=== PATIENT | female | born 1980 | race Caucasian/White ===

== ENCOUNTER 2021-05-15 11:33 | Inpatient (IN) ==
--- NOTE | 2021-05-15 12:27 | Emergency Department Note ---
Extremity Problem HPI General Chief complaint: Extremity Problem,Nontraumatic Stated complaint: lower ext swelling Time Seen by Provider: 05/15/21 12:05 Source: patient Mode of arrival: ambulatory Limitations: no limitations History of Present Illness HPI Narrative: Narrative: Patient is a 40-year-old female that comes into the emergency department with complaint of bilateral leg swelling. She reports that this started yesterday. She denies any injuries. She reports the left leg is swollen more than the right leg. She has pain to the calf area on each leg. She denies any fevers or chills. She has not noticed any bruising, redness, or breaks in the skin. She denies any cough, chest pain, or shortness of breath, or difficulty breathing. She denies any abdominal pain, nausea, or vomiting. She does report that she has history of chronic kidney disease, and is currently following with history professor, Dr. Ghosh. Her last GFR was 12. She indicates that she has a follow-up appointment with him next week, and she anticipates perhaps starting dialysis in the near future. She was mainly concerned of a blood clot today. She denies any history of blood clots. She is not currently on control pill, and she denies smoking history. Related Data Previous Rx's Medication Instructions Recorded cyanocobalamin (vitamin B-12) 1,000 mcg PO QDAY #30 cap 09/19/18 1,000 mcg capsule cholecalciferol (vitamin D3) 25 1,000 unit PO QDAY #30 cap 11/19/18 mcg (1,000 unit) capsule allopurinol 100 mg tablet 200 mg PO QDAY 30 Days #60 tab 01/01/20 amlodipine 10 mg tablet 10 mg PO QDAY #30 tab 01/01/20 calcitriol 0.5 mcg capsule 1 mcg PO QDAY #30 cap 01/01/20 clopidogrel 75 mg tablet 75 mg PO QDAY #30 tab 01/01/20 ferrous sulfate 325 mg (65 mg 325 mg PO BID #60 tab 01/01/20 iron) tablet furosemide [Lasix] 40 mg PO BID #14 tab 02/27/21 Allergies Allergy/AdvReac Type Severity Reaction Status Date / Time Penicillins [PENICILLINS] Allergy Severe ANAPHYLAXIS Verified 05/15/21 15:38 Cefaclor [From CECLOR] Allergy Mild RASH Verified 05/15/21 15:38 Erythromycin Base Allergy Mild RASH Verified 05/15/21 15:38 [ERYTHROMYCIN BASE] nitrofurantoin Allergy Mild RASH Verified 05/15/21 15:38 [From MACROBID] Sulfa (Sulfonamide Allergy Mild RASH Verified 05/15/21 15:38 Antibiotics) [SULFA(SULFONAMIDE ANTIBIOTICS)] sulfamethoxazole Allergy Mild RASH Verified 05/15/21 15:38 [From SEPTRA] trimethoprim [From SEPTRA] Allergy Mild RASH Verified 05/15/21 15:38 azithromycin Allergy Unknown Hives Verified 05/15/21 11:37 cephalexin [From Keflex] Allergy Unknown Unknown Verified 05/15/21 11:37 NSAIDS (Non-Steroidal AdvReac Intermediate KIDNEY Verified 05/15/21 15:38 Anti-Inflamma DAMAGE [NSAIDS (NON-STEROIDAL ANTI-INFLAMMA] sumatriptan [From IMITREX] AdvReac Mild WORSENS LAINEZ Verified 05/15/21 15:38 Review of Systems ROS ROS Narrative: Narrative: All systems ED: reviewed and negative except as stated. PFSH Narrative Patient History Narrative: Narrative: Medical/Surgical/Family History All Active Problems (Updated 05/16/21 @ 19:45 by SOL Dickinson) Anemia in chronic kidney disease (Chronic) Chronic kidney disease, stage III (moderate) (Chronic) Dysuria (Chronic) Hyperlipidemia (Chronic) Hypotension (Chronic) Migraine (Chronic) Obesity (Chronic) Personal history of urinary calculi (Chronic) Renal osteodystrophy (Chronic) Urinary tract infection (Chronic) Vitamin D deficiency (Chronic) History of (Chronic) History of hernia surgery (Chronic) History of tubal ligation (Chronic) Chronic renal insufficiency (Chronic) Depression (Chronic) Recurrent UTI (urinary tract infection) (Chronic) Gout (Chronic) Vesicoureteral reflux with nephropathy, bilateral (Chronic) CKD stage G5/A1, GFR <15 and albumin creatinine ratio <30 mg/g (Chronic) Secondary hyperparathyroidism of renal origin (Chronic) Metabolic acidosis, NAG, failure of bicarbonate regeneration (Chronic) Essential hypertension (Chronic) Anemia in chronic kidney disease (Chronic) TIN (tubulointerstitial nephritis) (Chronic) Edema, peripheral (Acute) COVID-19 (Acute) Cough (Acute) CKD (chronic kidney disease) (Acute) ESRD (end stage renal disease) (Acute) Benign hypertension with ESRD (end-stage renal disease) (Acute) Medical History (Updated 05/16/21 @ 19:45 by SOL Dickinson) Anemia in chronic kidney disease Anemia in chronic kidney disease Has not required STEPHEN therapy as hemoglobin remains above 9 g/dL Is on iron supplement Monitor as she is now on clopidogrel Chronic kidney disease, stage III (moderate) Chronic renal insufficiency CKD stage G5/A1, GFR <15 and albumin creatinine ratio <30 mg/g Slowly progressive, but holding her own. Reflux nephropathy with chronic TIN. Depression Dysuria Essential hypertension Amlodipine Gout On low-dose allopurinol adjusted for decreased GFR Avoid nonsteroidals Hyperlipidemia Hypotension Metabolic acidosis, NAG, failure of bicarbonate regeneration Eating a diet rich in alkaline foods such as dried fruits especially raisins, with supplemental bicarbonate Migraine Obesity Personal history of urinary calculi Recurrent UTI (urinary tract infection) Renal osteodystrophy long standing reflux => metabolic bone disease. Need to control PTH to <300 Secondary hyperparathyroidism of renal origin PTH improved with calcitriol therapy Ran out of her calcitriol, does have some vitamin B TIN (tubulointerstitial nephritis) Likely result of reflux with slow progression to end-stage renal disease Urinary tract infection Vesicoureteral reflux with nephropathy, bilateral Since childbith with ureteral reimplantation Vitamin D deficiency Surgical History History of x3 History of hernia surgery History of surgery ureteral implant as an infant History of tubal ligation 2007 History of ventral hernia repair (~06/2006) Status post ureteral reimplantation (04/01/94) Family History Father Chronic obstructive pulmonary disease, Onset Age: 58 Disease of lung they are thinking father has an inherited lung condition, alpha-1 antitrypsin deficiency Mother Glaucoma, Onset Age: 52 Migraine Sinus headache Eye disease Fainting spell Breast cancer Grandmother Rheumatoid arthritis Heart disease Stroke deformity Unknown deformity Heart disease Stroke Headache Respiratory disease Other Diabetes Heart attack Hypertension Kidney stone Social History Smoking Status: Former smoker Alcohol Intake Frequency: does not drink Substance Use: does not use Exam Narrative Narrative: Narrative: General Limitations: no limitations General appearance: Present alert and in no apparent distress Head Head: Present atraumatic, normocephalic and normal inspection Eye Eye: Present normal appearance; Absent scleral icterus ENT ENT: Present mucous membranes moist Neck Neck: Present full ROM Chest Chest: Present symmetric chest wall rise Respiratory Respiratory: Present normal lung sounds bilaterally; Absent respiratory distress, rales/crackles, wheezes, stridor, accessory muscle use and prolonged expiratory phase Cardiovascular Cardiovascular: Present regular rate and normal rhythm; Absent systolic murmur and diastolic murmur Adbominal Abdominal: Present soft; Absent distention and tenderness Extremities Extremities: Present other (3+ edema in bilateral lower extremities. Capillary refill less than 2 seconds. Mild tenderness with palpation on the left and right calf. Negative Homans' sign. No palpable cord.) Back Back: Present normal inspection Neurological Neurological: Present alert and oriented X3 Psychiatric Psychiatric: Present normal affect and normal mood Skin Skin: Present warm (WNL), dry and normal color Course Vital Signs Vital signs: Vital Signs Temperature 98.0 F 05/15/21 11:33 Pulse Rate 81 05/15/21 11:33 Respiratory Rate 14 05/15/21 11:33 Blood Pressure 138/97 05/15/21 11:33 Pulse Oximetry (%) 100 05/15/21 11:33 Temperature 97.6 F 05/16/21 16:00 Pulse Rate 92 H 05/16/21 16:00 Respiratory Rate 20 05/16/21 16:00 Blood Pressure 111/70 05/16/21 16:00 Pulse Oximetry (%) 100 05/16/21 16:00 [facility] Narrative Medical decision making narrative: Narrative: 40-year-old female with history of chronic kidney disease that comes into the e mergency department today with concern of bilateral lower extremity edema. Further discussion with the patient reveals that she had stopped taking her Lasix as she apparently had ran out of the medication. Her creatinine level is elevated at 12.4, and BUN 101. Patient's potassium normal at 3.7. Sodium 140. I was able to consult with Danny today, and Dr. Ghosh feels that the patient would benefit from starting hemodialysis. Patient will likely need to be seen sooner rather than on her schedule appointment May 30, 2021. Dr. Ghosh does feel that if the patient is uncomfortable, and not tolerating the fluid overload, that hospital admission may be beneficial for patient to be seen and start hemodialysis. I was able to consult with hospitalist, Dr. Matthews today who is agreeable with hospital admission, and will plan on admitting patient and consulting with nephrology. Lab Data Lab results reviewed: Yes I reviewed the patient's lab results. Result diagrams: 05/16/21 05:31 05/16/21 05:31 Labs: Lab Results 05/15/21 05/15/21 05/15/21 Range/Units 01:25 14:14 14:14 WBC 11.3 H (4.5-11.0) K/mcL RBC 2.45 L (4.00-5.20) M/mcL Hgb 7.4 L (12.0-15.0) g/dL Hct 23.5 L (36.0-48.0) % POC Hct 23 L (36-48) % MCV 95.9 (80.0-100.0) fL MCH 30.2 (26.0-34.0) pg MCHC 31.5 (31.0-36.0) g/dL RDW 14.7 H (11.5-14.5) % Plt Count 283 (140-440) K/mcL MPV 9.5 (7.4-10.4) fL Neut % (Auto) 76.9 (38.0-78.0) % Lymph % (Auto) 15.2 (15.0-49.0) % Rhea % (Auto) 5.2 (1.0-12.0) % Eos % (Auto) 2.3 (0.0-7.0) % Baso % (Auto) 0.4 (0.0-2.0) % Lymph # (Auto) 1.71 (1.50-4.80) K/mcL Rhea # (Auto) 0.59 (0.10-0.90) K/mcL Eos # (Auto) 0.26 (0.00-0.70) K/mcL Baso # (Auto) 0.04 (0.00-0.20) K/mcL Absolute Neutrophils 8.67 H (1.80-8.00) K/mcL POC Sodium 140 (133-145) mEq/L POC Potassium 3.7 (3.3-5.1) mEql/L POC Chloride 114 H (96-108) mEq/L POC Total CO2 11 L (22-30) mmol/L POC BUN 101 H* (6-20) mg/dL POC Creatinine 12.4 H* (0.6-1.2) mg/dL POC Glucose 87 (70-105) mg/dL POC WB Ioniz Calcium 1.00 L (1.16-1.32) mmEq/L Hep Bs Antigen Negative (Negative) ED POC Tests ED POC Tests: RACHEL - SARS Antigen Negative Radiology Data Radiology results reviewed: Yes I reviewed the patient's radiology results. Radiology results narrative: Ordering Physician: Anil Andrea Date of Service: 05/15/21 Procedure(s): US venous duplex LE Accession Number(s): [id number] History: Bilateral lower leg swelling and pain FINDINGS: There is normal augmentation and compressibility of the deep veins and saphenous vein in both legs from the groin through the distal calf. Doppler shows normal waveform patterns. Small amount of subcutaneous edema is present in the lower calf bilaterally. IMPRESSION: No evidence of deep venous thrombosis in either leg Interpreted and Authenticated by: Harjeet Stanley 05/15/21 Discharge Plan Patient/Caregiver Discharge Instructions Pt seen by [facility] [facility]/PA only: Yes Clinical Impression: Edema, peripheral, CKD (chronic kidney disease), ESRD (end stage renal disease) Patient Disposition: Xfer As Inpt ([facility]) Condition: Fair Discharge Date/Time: 05/15/21 19:14 Discharge Location: [facility]
[2021-05-15 14:39] LABS: POC Blood Urea Nitrogen 101 mg/dL (6-20); POC CO2 11 mmol/L (22-30); POC Chloride 114 mEq/L (96-108); POC Creatinine 12.4 mg/dL (0.6-1.2); POC Glucose, Random 87 mg/dL (70-105); POC Hematocrit 23 % (36-48); POC Potassium 3.7 mEql/L (3.3-5.1); POC Sodium 140 mEq/L (133-145)
--- NOTE | 2021-05-15 14:40 | Ultrasound Report ---
History: Bilateral lower leg swelling and pain FINDINGS: There is normal augmentation and compressibility of the deep veins and saphenous vein in both legs from the groin through the distal calf. Doppler shows normal waveform patterns. Small amount of subcutaneous edema is present in the lower calf bilaterally. IMPRESSION: No evidence of deep venous thrombosis in either leg Interpreted and Authenticated by: Harjeet Stanley 05/15/21
[2021-05-15] MEDS ORDERED: ZOLPIDEM 5 MG TABLET PO PRN ×2 (15:35→19:10)
[2021-05-15] MEDS ORDERED: ONDANSETRON 4 MG/2 ML VIAL IV PRN ×2 (15:35→19:10)
[2021-05-15] MEDS ORDERED: ACETAMINOPHEN 325 MG TABLET PO PRN (15:35)
--- NOTE | 2021-05-15 15:44 | Internal Med History&Physical ---
HPI History of Present Illness Patient information: Note initiated : 05/15/21 at 3:41 pm Service Date, if different from initiated Date: [] Patient: Nani Wild a 40 y/o F admitted on for lower ext swelling. Chief Complaint: [bilateral leg swelling] History of present illness: Ms. Wild is a 40 year old F history of stage V chronic kidney disease with associated hypertension, gout, presenting with 2-day history of bilateral leg swellings. Patient reported that she ran out of her Lasix for a few weeks. She is complaining of 2-day history of bilateral leg swellings and associated pain. She is also complaining of general body weakness for the past few days. She is also committing of decreased appetite over the same period of time. She denies any dyspnea or orthopnea. She denies any fever, chills, or diaphoresis. Her usual serum creatinine level was about 6 and today it is 12.4. Venous Doppler ultrasound bilateral lower extremities was performed and no evidence of DVT was found. Constitutional Constitutional: Present fatigue and weakness; Absent chills, excessive sweating and fever(s) EENT Eyes: Absent blurry vision, change in vision, loss of vision and other visual disturbances Ears: Absent decreased hearing and tinnitus Nose, mouth and throat: Absent abnormal hearing, dry mouth, headache(s), nasal congestion and sore throat Cardiovascular Cardiovascular: Absent chest pain, chest pain at rest, edema, irregular heart rhythm and palpatations Respiratory Respiratory: Absent cough, dyspnea and wheezing Gastrointestinal Gastrointestinal: Absent abdominal pain, constipation, diarrhea, nausea and vomiting Musculoskeletal Musculoskeletal: Absent back pain, deformity, limited range of motion, muscle cramps, muscle weakness and numbness Additional comments: Bilateral leg swelling Integumentary Integumentary: Absent lesions, rash and wounds Neurological Neurological: Absent focal weakness, headache(s) and numbness Psychiatric Psychiatric: Absent anxiety, depression and hallucinations PFSH PFSH All Active Problems (Updated 05/15/21 @ 15:40 by Stefano Matthews MD) Benign hypertension with ESRD (end-stage renal disease) (Acute) ESRD (end stage renal disease) (Acute) Anemia in chronic kidney disease (Chronic) Chronic kidney disease, stage III (moderate) (Chronic) Dysuria (Chronic) Hyperlipidemia (Chronic) Hypotension (Chronic) Migraine (Chronic) Obesity (Chronic) Personal history of urinary calculi (Chronic) Renal osteodystrophy (Chronic) Urinary tract infection (Chronic) Vitamin D deficiency (Chronic) History of (Chronic) History of hernia surgery (Chronic) History of tubal ligation (Chronic) Chronic renal insufficiency (Chronic) Depression (Chronic) Recurrent UTI (urinary tract infection) (Chronic) Gout (Chronic) Vesicoureteral reflux with nephropathy, bilateral (Chronic) CKD stage G5/A1, GFR <15 and albumin creatinine ratio <30 mg/g (Chronic) Secondary hyperparathyroidism of renal origin (Chronic) Metabolic acidosis, NAG, failure of bicarbonate regeneration (Chronic) Essential hypertension (Chronic) Anemia in chronic kidney disease (Chronic) TIN (tubulointerstitial nephritis) (Chronic) Edema, peripheral (Acute) COVID-19 (Acute) Cough (Acute) CKD (chronic kidney disease) (Acute) Medical History (Updated 05/15/21 @ 15:40 by Stefano Matthews MD) Anemia in chronic kidney disease Anemia in chronic kidney disease Has not required STEPHEN therapy as hemoglobin remains above 9 g/dL Is on iron supplement Monitor as she is now on clopidogrel Chronic kidney disease, stage III (moderate) Chronic renal insufficiency CKD stage G5/A1, GFR <15 and albumin creatinine ratio <30 mg/g Slowly progressive, but holding her own. Reflux nephropathy with chronic TIN. Depression Dysuria Essential hypertension Amlodipine Gout On low-dose allopurinol adjusted for decreased GFR Avoid nonsteroidals Hyperlipidemia Hypotension Metabolic acidosis, NAG, failure of bicarbonate regeneration Eating a diet rich in alkaline foods such as dried fruits especially raisins, with supplemental bicarbonate Migraine Obesity Personal history of urinary calculi Recurrent UTI (urinary tract infection) Renal osteodystrophy long standing reflux => metabolic bone disease. Need to control PTH to <300 Secondary hyperparathyroidism of renal origin PTH improved with calcitriol therapy Ran out of her calcitriol, does have some vitamin B TIN (tubulointerstitial nephritis) Likely result of reflux with slow progression to end-stage renal disease Urinary tract infection Vesicoureteral reflux with nephropathy, bilateral Since childbith with ureteral reimplantation Vitamin D deficiency Surgical History History of x3 History of hernia surgery History of surgery ureteral implant as an History of tubal ligation 2007 History of ventral hernia repair (~06/2006) Status post ureteral reimplantation (04/01/94) Family History Father Chronic obstructive pulmonary disease, Onset Age: 58 Disease of lung they are thinking father has an inherited lung condition, alpha-1 antitrypsin deficiency Mother Glaucoma, Onset Age: 52 Migraine Sinus headache Eye disease Fainting spell Breast cancer Grandmother Rheumatoid arthritis Heart disease Stroke deformity Unknown deformity Heart disease Stroke Headache Respiratory disease Other Diabetes Heart attack Hypertension Kidney stone Social History (Updated 04/01/20 @ 16:39 by Jer Ghosh MD) physical activity: none alcohol intake frequency: does not drink substance use type: does not use seatbelt use: always MEDS/ALLERGIES Home Medications and Allergies Home Medications Medication Instructions Recorded Confirmed Type cyanocobalamin (vitamin B-12) 1,000 mcg PO QDAY #30 cap 09/19/18 05/15/21 Rx 1,000 mcg capsule cholecalciferol (vitamin D3) 25 1,000 unit PO QDAY #30 cap 11/19/18 05/15/21 Rx mcg (1,000 unit) capsule allopurinol 100 mg tablet 200 mg PO QDAY 30 Days #60 tab 01/01/20 05/15/21 Rx amlodipine 10 mg tablet 10 mg PO QDAY #30 tab 01/01/20 05/15/21 Rx calcitriol 0.5 mcg capsule 1 mcg PO QDAY #30 cap 01/01/20 05/15/21 Rx clopidogrel 75 mg tablet 75 mg PO QDAY #30 tab 01/01/20 05/15/21 Rx ferrous sulfate 325 mg (65 mg 325 mg PO BID #60 tab 01/01/20 05/15/21 Rx iron) tablet furosemide [Lasix] 40 mg PO BID #14 tab 02/27/21 05/15/21 Rx Allergies Allergy/AdvReac Type Severity Reaction Status Date / Time Penicillins [PENICILLINS] Allergy Severe ANAPHYLAXIS Verified 05/15/21 15:38 Cefaclor [From CECLOR] Allergy Mild RASH Verified 05/15/21 15:38 Erythromycin Base Allergy Mild RASH Verified 05/15/21 15:38 [ERYTHROMYCIN BASE] nitrofurantoin Allergy Mild RASH Verified 05/15/21 15:38 [From MACROBID] Sulfa (Sulfonamide Allergy Mild RASH Verified 05/15/21 15:38 Antibiotics) [SULFA(SULFONAMIDE ANTIBIOTICS)] sulfamethoxazole Allergy Mild RASH Verified 05/15/21 15:38 [From SEPTRA] trimethoprim [From SEPTRA] Allergy Mild RASH Verified 05/15/21 15:38 azithromycin Allergy Unknown Hives Verified 05/15/21 11:37 cephalexin [From Keflex] Allergy Unknown Unknown Verified 05/15/21 11:37 NSAIDS (Non-Steroidal AdvReac Intermediate KIDNEY Verified 05/15/21 15:38 Anti-Inflamma DAMAGE [NSAIDS (NON-STEROIDAL ANTI-INFLAMMA] sumatriptan [From IMITREX] AdvReac Mild WORSENS LAINEZ Verified 05/15/21 15:38 EXAM Constitutional Vitals: Temp Pulse Resp BP Pulse Ox 36.7 C 81 14 138/97 100 05/15/21 11:33 05/15/21 11:33 05/15/21 11:33 05/15/21 11:33 05/15/21 11:33 General appearance: cooperative and no acute distress Head Head exam: Present atraumatic and normocephalic Eye Eye exam: Present EOMI and PERRL ENT ENT exam: Present mucous membranes moist, normal exam and normal external ear exam Neck Neck exam: Present normal inspection; Absent lymphadenopathy, tenderness and thyromegaly Respiratory Respiratory exam: Absent accessory muscle use, respiratory distress and wheezes Cardiovascular Cardiovascular exam: Present normal rate and rhythm; Absent JVD GI/Abdominal GI/Abdominal exam: Present normal bowel sounds and soft; Absent organomegaly and tenderness Extremities Exam Extremities exam: Present full ROM, normal capillary refill, normal inspection and pedal edema; Absent tenderness Additional comments: AV fistula in left arm 2+ pitting edema bilateral lower extremities up to thighs Neurological Exam Neurological exam: Present alert, CN II-XII intact and oriented X3; Absent motor sensory deficit Psychiatric Psychiatric exam: Present normal affect and normal mood; Absent anxious and depressed Skin Skin exam: Present dry and intact DATA Data Completed and Pending Labs: Labs from last 24 hours 05/15/21 14:14 POC Hct 23 L POC Sodium 140 POC Potassium 3.7 POC Chloride 114 H POC Total CO2 11 L POC BUN 101 H* POC Creatinine 12.4 H* POC Glucose 87 POC WB Ioniz Calcium 1.00 L A/P Assessment and plan (1) ESRD (end stage renal disease): Status: Acute (2) Benign hypertension with ESRD (end-stage renal disease): Status: Acute (3) Gout: Status: Chronic Comment: On low-dose allopurinol adjusted for decreased GFR Avoid nonsteroidals Qualifiers: Gout site: foot Gout etiology: due to renal impairment Chronicity: chronic Laterality: left Presence of tophus: without tophus Qualified Code(s): 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 Chronic kidney disease stage V now progressing to end stage renal disease: Admit to inpatient med surg Consult conservation enforcement officer Dr. Ghosh for potential hemodialysis on 05/16/21 Increase Lasix from 40mg PO daily to BID Renal diet 2. Hypertensive associated with ESRD: Increase Lasix from 40mg PO daily to BID Resume other home regimen of oral antihypertensives 3. Gout: Hold allopurinol given acute worsening renal function for the time being GI ppx: not currently indicated DVT ppx: heparin Code status: Full Prognosis: guarded Disposition: inpatient med surg Time Spent With Patient Time: Total time spent is greater than 50% in coordination of care (as documented) at patient's floor/unit and/or counseling patient: Total time spent with greater than 50% in coordination of care (as documented) at patient's floor/unit and/or counseling patient:: 15 - 24 minutes
[2021-05-15 15:55] LABS: Basophils # (Auto) 0.04 K/mcL (0.00-0.20); Basophils % (Auto) 0.4 % (0.0-2.0); Eosinophils # (Auto) 0.26 K/mcL (0.00-0.70); Eosinophils % (Auto) 2.3 % (0.0-7.0); Hematocrit 23.5 % (36.0-48.0); Hemoglobin 7.4 g/dL (12.0-15.0); Lymphocytes # (Auto) 1.71 K/mcL (1.50-4.80); Lymphocytes % (Auto) 15.2 % (15.0-49.0); Mean Cell Volume 95.9 fL (80.0-100.0); Mean Corpuscular HGB Conc 31.5 g/dL (31.0-36.0); Mean Platelet Volume 9.5 fL (7.4-10.4); Monocytes # (Auto) 0.59 K/mcL (0.10-0.90); Monocytes % (Auto) 5.2 % (1.0-12.0); Neutrophils % (Auto) 76.9 % (38.0-78.0); Platelet Count 283 K/mcL (140-440); RBC 2.45 M/mcL (4.00-5.20); Red Cell Distribution Width 14.7 % (11.5-14.5); WBC 11.3 K/mcL (4.5-11.0)
[2021-05-15] MEDS ORDERED: FUROSEMIDE 40 MG TABLET PO SCH (16:00)
[2021-05-15] MEDS: DOCUSATE SODIUM 100 MG CAPSULE PO SCH (20:18)
[2021-05-15] MEDS: SENNOSIDES 1 TABLET PO SCH (20:19)
[2021-05-15] MEDS: 0.9 % SODIUM CHLORIDE 10 ML SYRINGE IV SCH (20:40)
[2021-05-15] MEDS: HEPARIN 5,000 UNIT/ML VIAL SQ SCH (20:47)
[2021-05-15] MEDS ORDERED: HEPARIN 5,000 UNIT/ML VIAL SQ SCH (21:00)
[2021-05-15] MEDS ORDERED: DOCUSATE SODIUM 100 MG CAPSULE PO SCH (21:00)
[2021-05-15] MEDS ORDERED: SENNOSIDES 1 TABLET PO SCH (21:00)
[2021-05-15] MEDS: FUROSEMIDE 40 MG/4 ML VIAL IV ONE ×2 (21:21→21:24)
[2021-05-15] MEDS ORDERED: FUROSEMIDE 40 MG TABLET PO ONE (21:32)
[2021-05-15] MEDS ORDERED: FUROSEMIDE 40 MG TABLET ONE (22:00)
[2021-05-15] MEDS ORDERED: 0.9 % SODIUM CHLORIDE 10 ML SYRINGE IV SCH (22:00)
[2021-05-16 03:01] LABS: Hepatitis B Surface Antibody Negative
[2021-05-16] MEDS: 0.9 % SODIUM CHLORIDE 10 ML SYRINGE IV SCH ×3 (04:27→20:38)
[2021-05-16] MEDS ORDERED: DARBEPOETIN ALFA 40 MCG/ML VIAL IV SCH (08:00)
[2021-05-16 08:07] LABS: Basophils # (Auto) 0.03 K/mcL (0.00-0.20); Basophils % (Auto) 0.3 % (0.0-2.0); Eosinophils % (Auto) 2.1 % (0.0-7.0); Hematocrit 21.9 % (36.0-48.0); Hemoglobin 6.9 g/dL (12.0-15.0); Lymphocytes # (Auto) 1.84 K/mcL (1.50-4.80); Mean Cell Volume 97.8 fL (80.0-100.0); Mean Corpuscular HGB Conc 31.5 g/dL (31.0-36.0); Mean Platelet Volume 9.5 fL (7.4-10.4); Monocytes # (Auto) 0.32 K/mcL (0.10-0.90); Monocytes % (Auto) 3.3 % (1.0-12.0); Neutrophils % (Auto) 75.3 % (38.0-78.0); Platelet Count 287 K/mcL (140-440); RBC 2.24 M/mcL (4.00-5.20); Red Cell Distribution Width 14.6 % (11.5-14.5); WBC 9.7 K/mcL (4.5-11.0)
[2021-05-16] MEDS: FUROSEMIDE 40 MG TABLET PO SCH ×2 (08:22→16:56)
[2021-05-16] MEDS: DOCUSATE SODIUM 100 MG CAPSULE PO SCH ×2 (08:22→20:39)
--- NOTE | 2021-05-16 08:28 | Nephrology Consult Note ---
HPI Data of Consult Consult date: 05/15/21 Primary Care Provider: PCP No Consult Narrative cc:: CC: Stefano Matthews MD Patient is a pleasant 40-year-old woman with longstanding progressive CKD now at end-stage renal disease. Past year she had been cared for by physicians in [place] but has moved and returned to the area and was scheduled to see me in office early next month. She presented to the emergency room concerns of lower extremity edema which was negative for DVT. Review of her lab work is consistent with end-stage renal disease with a metabolic acidosis and other electrolyte abnormalities seen in end-stage renal disease. When the ER physician called me at around 3 PM I gave him the option of admitting her at that time to institute dialysis or to wait till I see here in clinic, and he chose the former given the number of electrolyte abnormalities. When I last saw the patient in March of 2020, my note stated the following: Martina Wild is a 38-year-old woman approaching end-stage renal disease whose primary care physician is Carlo Wyatt. 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 Due to her home living condition she is not a candidate for home modalities. On 21 August the patient had a left upper arm AV fistula constructed by Dr. José Miguel Willoughby. It has all good bruit and the vessel that seems to be maturing is the cephalic vein and is easily palpable as it runs up her left arm. She also suffers from morbid obesity, recurrent UTI, dyslipidemia and other medical issues who is here for follow up. She has h/o CKD stage IV with overt proteinuria in the setting of VUR, work up negative for hepatitis panel, normal complements, negative MICAELA, negative serum and urine macrina she has atrophic right kidney at 7.6 cm, left kidney at 9.3 cm, no stenosis on renal doppler VCUG repeated was negative but the pt did not urinate during the study Her first surgery was somewhere around the age of 6 months for what I believe was posterior urethral valves and reflux she has secondary hyperparathyroidism, metabolic acidosis, anemia associated with her renal issues Laboratory Tests 03/26/20 Sodium 142 Potassium 4 Chloride 112 H Carbon Dioxide 17 L Anion Gap 13 BUN 31 H Creatinine 3.74 H GFR Calculation 14 L Glucose 118 H Uric Acid 7.7 H Calcium 8 L Phosphorus 4.5 Albumin 3.9 Vital Signs Temp Pulse Pulse Resp BP BP Pulse Ox 05/16/21 04:00 36.6 C 82 14 122/84 100 05/16/21 00:00 36.6 C 80 16 122/83 100 05/15/21 19:05 36.4 C 72 16 148/90 100 05/15/21 18:46 66 16 144/99 100 05/15/21 16:32 155/94 05/15/21 16:24 113 H 85 L 05/15/21 16:12 143/93 05/15/21 11:33 36.7 C 81 14 138/97 100 Intake and Output 05/15/21 05/16/21 05/16/21 21:59 05:59 13:59 Intake Total 480 700 Output Total 200 500 Balance 280 200 Intake: Oral 480 700 Output: Void Amount 200 500 Other: Urine Appearance Cloudy Purulent Urine Color Bright Yellow Bright Yellow Green Stool Size Small Stool Color Brown Stool Consistency Loose Weight 67.132 kg Laboratory Last Values WBC 9.7 K/mcL (4.5-11.0) 05/16/21 05:31 RBC 2.24 M/mcL (4.00-5.20) L 05/16/21 05:31 Hgb 6.9 g/dL (12.0-15.0) L* 05/16/21 05:31 Hct 21.9 % (36.0-48.0) L 05/16/21 05:31 POC Hct 23 % (36-48) L 05/15/21 14:14 MCV 97.8 fL (80.0-100.0) 05/16/21 05:31 MCH 30.8 pg (26.0-34.0) 05/16/21 05:31 MCHC 31.5 g/dL (31.0-36.0) 05/16/21 05:31 RDW 14.6 % (11.5-14.5) H 05/16/21 05:31 Plt Count 287 K/mcL (140-440) 05/16/21 05:31 MPV 9.5 fL (7.4-10.4) 05/16/21 05:31 Neut % (Auto) 75.3 % (38.0-78.0) 05/16/21 05:31 Lymph % (Auto) 19.0 % (15.0-49.0) 05/16/21 05:31 [place] % (Auto) 3.3 % (1.0-12.0) 05/16/21 05:31 Eos % (Auto) 2.1 % (0.0-7.0) 05/16/21 05:31 Baso % (Auto) 0.3 % (0.0-2.0) 05/16/21 05:31 Lymph # (Auto) 1.84 K/mcL (1.50-4.80) 05/16/21 05:31 [place] # (Auto) 0.32 K/mcL (0.10-0.90) 05/16/21 05:31 Eos # (Auto) 0.20 K/mcL (0.00-0.70) 05/16/21 05:31 Baso # (Auto) 0.03 K/mcL (0.00-0.20) 05/16/21 05:31 Absolute Neutrophils 7.27 K/mcL (1.80-8.00) 05/16/21 05:31 POC Sodium 140 mEq/L (133-145) 05/15/21 14:14 POC Potassium 3.7 mEql/L (3.3-5.1) 05/15/21 14:14 POC Chloride 114 mEq/L (96-108) H 05/15/21 14:14 POC Total CO2 11 mmol/L (22-30) L 05/15/21 14:14 POC BUN 101 mg/dL (6-20) H* 05/15/21 14:14 POC Creatinine 12.4 mg/dL (0.6-1.2) H* 05/15/21 14:14 POC Glucose 87 mg/dL (70-105) 05/15/21 14:14 POC WB Ioniz Calcium 1.00 mmEq/L (1.16-1.32) L 05/15/21 14:14 Hep Bs Antigen Negative (Negative) 05/15/21 01:25 Hep Bs Antibody Negative 05/16/21 01:35 Plan is to admit for CKD 6 with uremia, transfusion of 1-2 units of RBCs and arrange outpatient HD at [facility] HD unit. Review of Systems All systems: reviewed and no additional remarkable complaints except as stated Constitutional Constitutional: Present weakness, weight loss and other Additional comments: Decreased appetite Cardiovascular Cardiovascular: Present leg edema Psychiatric Psychiatric: Present as per HPI and change in appetite Additional comments: Poor appetite Hematologic/Lymphatic Hematologic/Lymphatic: Present other Additional comments: Worsening anemia PFSH PFSH All Active Problems (Updated 05/15/21 @ 15:40 by Stefano Matthews MD) CKD (chronic kidney disease) (Acute) ESRD (end stage renal disease) (Acute) Benign hypertension with ESRD (end-stage renal disease) (Acute) CKD stage G5/A1, GFR <15 and albumin creatinine ratio <30 mg/g (Chronic) Metabolic acidosis, NAG, failure of bicarbonate regeneration (Chronic) Anemia in chronic kidney disease (Chronic) Secondary hyperparathyroidism of renal origin (Chronic) TIN (tubulointerstitial nephritis) (Chronic) Edema, peripheral (Acute) Vesicoureteral reflux with nephropathy, bilateral (Chronic) Gout (Chronic) Anemia in chronic kidney disease (Chronic) Chronic kidney disease, stage III (moderate) (Chronic) Dysuria (Chronic) Hyperlipidemia (Chronic) Hypotension (Chronic) Migraine (Chronic) Obesity (Chronic) Personal history of urinary calculi (Chronic) Renal osteodystrophy (Chronic) Urinary tract infection (Chronic) Vitamin D deficiency (Chronic) History of (Chronic) History of hernia surgery (Chronic) History of tubal ligation (Chronic) Chronic renal insufficiency (Chronic) Depression (Chronic) Recurrent UTI (urinary tract infection) (Chronic) Essential hypertension (Chronic) COVID-19 (Acute) Cough (Acute) Medical History (Updated 05/15/21 @ 15:40 by Stefano Matthews MD) Anemia in chronic kidney disease Anemia in chronic kidney disease Has not required STEPHEN therapy as hemoglobin remains above 9 g/dL Is on iron supplement Monitor as she is now on clopidogrel Chronic kidney disease, stage III (moderate) Chronic renal insufficiency CKD stage G5/A1, GFR <15 and albumin creatinine ratio <30 mg/g Slowly progressive, but holding her own. Reflux nephropathy with chronic TIN. Depression Dysuria Essential hypertension Amlodipine Gout On low-dose allopurinol adjusted for decreased GFR Avoid nonsteroidals Hyperlipidemia Hypotension Metabolic acidosis, NAG, failure of bicarbonate regeneration Eating a diet rich in alkaline foods such as dried fruits especially raisins, with supplemental bicarbonate Migraine Obesity Personal history of urinary calculi Recurrent UTI (urinary tract infection) Renal osteodystrophy long standing reflux => metabolic bone disease. Need to control PTH to <300 Secondary hyperparathyroidism of renal origin PTH improved with calcitriol therapy Ran out of her calcitriol, does have some vitamin B TIN (tubulointerstitial nephritis) Likely result of reflux with slow progression to end-stage renal disease Urinary tract infection Vesicoureteral reflux with nephropathy, bilateral Since childbith with ureteral reimplantation Vitamin D deficiency Surgical History History of x3 History of hernia surgery History of surgery ureteral implant as an History of tubal ligation 2007 History of ventral hernia repair (~06/2006) Status post ureteral reimplantation (04/01/94) Family History Father Chronic obstructive pulmonary disease, Onset Age: 58 Disease of lung they are thinking father has an inherited lung condition, alpha-1 antitrypsin deficiency Mother Glaucoma, Onset Age: 52 Migraine Sinus headache Eye disease Fainting spell Breast cancer Grandmother Rheumatoid arthritis Heart disease Stroke deformity Unknown deformity Heart disease Stroke Headache Respiratory disease Other Diabetes Heart attack Hypertension Kidney stone Social History (Updated 04/01/20 @ 16:39 by Jer Ghosh MD) physical activity: none alcohol intake frequency: does not drink substance use type: does not use seatbelt use: always MEDS/ALLERGIES Home Medications and Allergies Home Medications Medication Instructions Recorded Confirmed Type cyanocobalamin (vitamin B-12) 1,000 mcg PO QDAY #30 cap 09/19/18 05/15/21 Rx 1,000 mcg capsule cholecalciferol (vitamin D3) 25 1,000 unit PO QDAY #30 cap 11/19/18 05/15/21 Rx mcg (1,000 unit) capsule allopurinol 100 mg tablet 200 mg PO QDAY 30 Days #60 tab 01/01/20 05/15/21 Rx amlodipine 10 mg tablet 10 mg PO QDAY #30 tab 01/01/20 05/15/21 Rx calcitriol 0.5 mcg capsule 1 mcg PO QDAY #30 cap 01/01/20 05/15/21 Rx clopidogrel 75 mg tablet 75 mg PO QDAY #30 tab 01/01/20 05/15/21 Rx ferrous sulfate 325 mg (65 mg 325 mg PO BID #60 tab 01/01/20 05/15/21 Rx iron) tablet furosemide [Lasix] 40 mg PO BID #14 tab 02/27/21 05/15/21 Rx Allergies Allergy/AdvReac Type Severity Reaction Status Date / Time Penicillins [PENICILLINS] Allergy Severe ANAPHYLAXIS Verified 05/15/21 15:38 Cefaclor [From CECLOR] Allergy Mild RASH Verified 05/15/21 15:38 Erythromycin Base Allergy Mild RASH Verified 05/15/21 15:38 [ERYTHROMYCIN BASE] nitrofurantoin Allergy Mild RASH Verified 05/15/21 15:38 [From MACROBID] Sulfa (Sulfonamide Allergy Mild RASH Verified 05/15/21 15:38 Antibiotics) [SULFA(SULFONAMIDE ANTIBIOTICS)] sulfamethoxazole Allergy Mild RASH Verified 05/15/21 15:38 [From SEPTRA] trimethoprim [From SEPTRA] Allergy Mild RASH Verified 05/15/21 15:38 azithromycin Allergy Unknown Hives Verified 05/15/21 11:37 cephalexin [From Keflex] Allergy Unknown Unknown Verified 05/15/21 11:37 NSAIDS (Non-Steroidal AdvReac Intermediate KIDNEY Verified 05/15/21 15:38 Anti-Inflamma DAMAGE [NSAIDS (NON-STEROIDAL ANTI-INFLAMMA] sumatriptan [From IMITREX] AdvReac Mild WORSENS LAINEZ Verified 05/15/21 15:38 Physical Examination Vital Signs Vital signs: Temp Pulse Resp BP Pulse Ox 36.6 C 82 14 122/84 100 05/16/21 04:00 05/16/21 04:00 05/16/21 04:00 05/16/21 04:00 05/16/21 04:00 General Appearance General appearance: appears started age and chronically ill EENT EENT: ATNC, PERRL and mucous membranes moist Neck Neck: no JVD and no carotid bruit Respiratory Respiratory: rhonchi Cardiovascular Cardiology: mid-systolic murmur, edema, regular rate, regular rhythm, normal S1 and split S1 Gastrointestinal Gastrointestinal: normoactive bowel sounds Integumentary Integumentary: warm and dry Neurologic Neurologic: no focal deficit, no asterixis, alert and oriented x3 and CN 3-12 intact Musculoskeletal Musculoskeletal: no deformities, no erythema, no cyanosis and no clubbing Psychiatric Psychiatric: mood/affect appropriate Results Lab Results Result Diagrams: 05/16/21 05:31 05/16/21 05:31 A/P Assessment and plan (1) ESRD (end stage renal disease): Status: Acute (2) Metabolic acidosis, NAG, failure of bicarbonate regeneration: Status: Chronic Comment: Eating a diet rich in alkaline foods such as dried fruits especially raisins, with supplemental bicarbonate (3) Anemia in chronic kidney disease: Status: Chronic Comment: Has not required STEPHEN therapy as hemoglobin remains above 9 g/dL Is on iron supplement Monitor as she is now on clopidogrel (4) Secondary hyperparathyroidism of renal origin: Status: Chronic Comment: PTH improved with calcitriol therapy Ran out of her calcitriol, does have some vitamin B (5) Vesicoureteral reflux with nephropathy, bilateral: Status: Chronic Comment: Since childbith with ureteral reimplantation (6) TIN (tubulointerstitial nephritis): Status: Chronic Comment: Likely result of reflux with slow progression to end-stage renal disease (7) Edema, peripheral: Status: Acute Narrative A/P Narrative: 1. Reflux nephritis despite attempts at surgical correction 2. Slow progression to ESRD over the years 3. Appropriate for institution of renal replacement therapy at this time 4. Anemia to be treated with 1 to 2 units of packed red blood cells 5. Initiation of STEPHEN therapy 6. Start phosphate binders and vitamin D analogs 7. Routine dialysis as an outpatient. 8. Initially plan on inpatient hemodialysis for 3 sessions increasing time to prevent disequilibrium. 9. Anticipate TTS as an outpatient and plan on her first outpatient treatment on May 21 10. Primary care physician Time Spent With Patient Time: Total time spent is greater than 50% in coordination of care (as documented) at patient's floor/unit and/or counseling patient: Total time spent with greater than 50% in coordination of care (as documented) at patient's floor/unit and/or counseling patient:: Greater than 35 minutes
[2021-05-16] MEDS ORDERED: 0.9 % SODIUM CHLORIDE 250 ML IV SCH (08:30)
[2021-05-16 08:34] LABS: ALT/SGPT 6 U/L (<40); AST/SGOT 8 U/L (<32); Albumin 2.8 gm/dL (3.2-5.2); Albumin/Globulin Ratio 0.8 (1.0-2.3); Alkaline Phosphatase 103 U/L (39-117); Bilirubin,Total 0.2 mg/dL (0.1-1.0); Blood Urea Nitrogen 82 mg/dL (6-20); Calcium 7.6 mg/dL (8.6-10.4); Carbon Dioxide 9 mmol/L (22-30); Chloride 104 mmol/L (96-108); Globulin 3.6 gm/dL (2.2-3.7); Glomerular Filtration Rate 5; Glucose 66 mg/dL (70-105)
[2021-05-16 08:34] LABS: Iron 60 ug/dL (37-145); TIBC Calculation 112 ug/dl (228-428); Transferrin % Saturation 54 % (15-50)
[2021-05-16 08:38] LABS: Ferritin 278.6 ng/mL (13.0-150.0)
[2021-05-16] MEDS: HEPARIN 5,000 UNIT/ML VIAL SQ SCH ×2 (09:00→20:38)
[2021-05-16] MEDS: CYANOCOBALAMIN (VITAMIN B-12) 500 MCG TABLET PO SCH (09:00)
[2021-05-16] MEDS: VITAMIN D3 1,000 UNIT TABLET PO SCH (09:00)
[2021-05-16] MEDS ORDERED: amLODIPine 10 MG TABLET PO SCH (09:00)
[2021-05-16] MEDS: CALCITRIOL 0.25 MCG CAPSULE PO SCH (09:00)
[2021-05-16] MEDS: CLOPIDOGREL 75 MG TABLET PO SCH (09:00)
[2021-05-16] MEDS: FERROUS SULFATE 325 MG TABLET PO SCH ×2 (09:16→16:56)
--- NOTE | 2021-05-16 12:29 | Internal Med Progress Note ---
SUBJECTIVE Subjective Patient information: Note initiated : 05/16/21 at 12:26 pm Service Date, if different from initiated Date: [] Patient: Nani Wild 40 y/o F admitted on 05/15/21 for lower ext swelling. Chief Complaint: [ESRD requiring hemodialysis] 05/16/21: Hemoglobin 6.9 this morning. Received hemodialysis earlier this morning. Currently c/o mild lightheadedness and general body weakness. Denies chest pain or palpitation. Denies nausea or vomiting. Denies shortness of breath. Constitutional Vitals: Vital Signs Temp Pulse Resp BP Pulse Ox 36.4 C 68 16 96/54 91 05/16/21 11:55 05/16/21 11:55 05/16/21 08:28 05/16/21 11:55 05/16/21 08:28 Period Temp Pulse Resp BP Sys/Kinney Pulse Ox Last 24 Hr 36.1 C-36.8 C 60-113 14-20 83-155/40-99 85-100 Intake and Output 05/15/21 05/16/21 05/16/21 21:59 05:59 13:59 Intake Total 480 700 Output Total 200 500 0 Balance 280 200 0 Weight 67.132 kg Intake & Output: Intake & Output 05/15/21 05/16/21 05/16/21 21:59 05:59 13:59 Intake Total 480 700 Output Total 200 500 0 Balance 280 200 0 Weight 67.132 kg Intake: Oral 480 700 Output: Void Amount 200 500 Hemodialysis UF 0 Other: Urine Appearance Cloudy Purulent Urine Color Bright Yellow Bright Yellow Green Stool Size Small Stool Color Brown Stool Consistency Loose General appearance: cooperative and no acute distress Head Head exam: Present atraumatic and normocephalic Eye Eye exam: Present EOMI and PERRL ENT ENT exam: Present mucous membranes moist, normal exam and normal external ear exam Neck Neck exam: Present normal inspection; Absent lymphadenopathy, tenderness and thyromegaly Respiratory Respiratory exam: Absent accessory muscle use, respiratory distress and wheezes Cardiovascular Cardiovascular exam: Present normal rate and rhythm; Absent JVD Additional comments: Left arm AV fistula with palpable thrill GI/Abdominal GI/Abdominal exam: Present normal bowel sounds and soft; Absent organomegaly and tenderness Extremities Exam Extremities exam: Present full ROM, normal capillary refill and normal inspection; Absent tenderness Additional comments: Left arm AV fistula with palpable thrill Neurological Exam Neurological exam: Present alert, CN II-XII intact and oriented X3; Absent motor sensory deficit Psychiatric Psychiatric exam: Present normal affect and normal mood; Absent anxious and depressed Skin Skin exam: Present dry and intact OBJ DATA Labs CBC & Chem 7: 05/16/21 05:31 05/16/21 05:31 Labs: Abnormal Lab Results 05/16/21 05/16/21 05/16/21 05:31 05:31 05:30 WBC RBC 2.24 L Hgb 6.9 L* Hct 21.9 L POC Hct RDW 14.6 H Absolute Neutrophils POC Chloride Carbon Dioxide 9 L* POC Total CO2 Anion Gap 22.0 H POC BUN BUN 82 H Creatinine 9.5 H* POC Creatinine Glucose 66 L Calcium 7.6 L POC WB Ioniz Calcium TIBC 112 L Unsat Iron Binding 52 L Transferrin % Sat 54 H Ferritin 278.6 H Albumin 2.8 L Albumin/Globulin Ratio 0.8 L 05/15/21 05/15/21 14:14 14:14 WBC 11.3 H RBC 2.45 L Hgb 7.4 L Hct 23.5 L POC Hct 23 L RDW 14.7 H Absolute Neutrophils 8.67 H POC Chloride 114 H Carbon Dioxide POC Total CO2 11 L Anion Gap POC BUN 101 H* BUN Creatinine POC Creatinine 12.4 H* Glucose Calcium POC WB Ioniz Calcium 1.00 L TIBC Unsat Iron Binding Transferrin % Sat Ferritin Albumin Albumin/Globulin Ratio Meds: Medications Acetaminophen (Acetaminophen 325 Mg Tablet) 650 mg PO Q6HP PRN; Protocol PRN Reason: Per Pain Protocol/Fever > 101 Amlodipine Besylate (Amlodipine 10 Mg Tablet) 10 mg PO QDAY [facility] Last Admin: 05/16/21 09:41 Dose: Not Given Documented by: Calcitriol (Calcitriol 0.25 Mcg Capsule) 1 mcg PO DAILY [facility] Last Admin: 05/16/21 09:00 Dose: 1 mcg Documented by: Clopidogrel Bisulfate (Clopidogrel 75 Mg Tablet) 75 mg PO QDAY [facility] Last Admin: 05/16/21 09:00 Dose: 75 mg Documented by: Cyanocobalamin (Cyanocobalamin (Vitamin B-12) 500 Mcg Tablet) 1,000 mcg PO DAILY [facility] Last Admin: 05/16/21 09:00 Dose: 1,000 mcg Documented by: Darbepoetin Ochoa (Darbepoetin Ochoa 40 Mcg/Ml Vial) 40 mcg IV WEEKLY [facility] Last Admin: 05/16/21 11:10 Dose: 40 mcg Documented by: Docusate Sodium (Docusate Sodium 100 Mg Capsule) 100 mg PO BID [facility] Last Admin: 05/16/21 08:22 Dose: Not Given Documented by: Ferrous Sulfate (Ferrous Sulfate 325 Mg Tablet) 325 mg PO BIDCC [facility] Last Admin: 05/16/21 09:16 Dose: 325 mg Documented by: Furosemide (Furosemide 40 Mg Tablet) 40 mg PO BIDD [facility] Last Admin: 05/16/21 08:22 Dose: Not Given Documented by: Heparin Sodium (Porcine) (Heparin 5,000 Unit/Ml Vial) 5,000 unit SQ Q12 [facility] Last Admin: 05/16/21 09:00 Dose: 5,000 unit Documented by: Sodium Chloride (Sodium Chloride 0.9%) 250 mls @ 20 mls/hr IV .[id number] [facility] Stop: 05/16/21 20:59 Last Admin: 05/16/21 11:23 Dose: Not Given Documented by: Ondansetron HCl (Ondansetron 4 Mg/2 Ml Vial) 4 mg IV Q6HP PRN PRN Reason: Nausea And Vomiting Senna (Sennosides 1 Tablet) 2 tab PO HS [facility] Last Admin: 05/15/21 20:19 Dose: Not Given Documented by: Sodium Chloride (0.9 % Sodium Chloride 10 Ml Syringe) 10 ml IV Q8 [facility] Last Admin: 05/16/21 04:27 Dose: 10 ml Documented by: Vitamin D (Vitamin D3 1,000 Unit Tablet) 1,000 unit PO DAILY [facility] Last Admin: 05/16/21 09:00 Dose: 1,000 unit Documented by: Zolpidem Tartrate (Zolpidem 5 Mg Tablet) 5 mg PO HSP PRN PRN Reason: Insomnia A/P Assessment and plan (1) ESRD (end stage renal disease): Status: Acute (2) Benign hypertension with ESRD (end-stage renal disease): Status: Acute (3) Gout: Status: Chronic Comment: On low-dose allopurinol adjusted for decreased GFR Avoid nonsteroidals Qualifiers: Gout site: foot Gout etiology: due to renal impairment Chronicity: chronic Laterality: left Presence of tophus: without tophus Qualified Code(s): 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 Chronic kidney disease stage V now progressing to end stage renal disease: Stays in inpatient med surg Consult delivery driver assistant Dr. Ghosh, hemodialysis on 05/16/21 Increase Lasix from 40mg PO daily to BID Renal diet 2. Hypertensive associated with ESRD: [id number] PO BID Resume other home regimen of oral antihypertensives 3. Gout: Hold allopurinol given acute worsening renal function for the time being 4. Anemia associated with ESRD: 2 unit pRBC transfusion given alongside hemodialysis cbc w/ auto diff daily to trend H/H and repeat pRBC transfusion as needed GI ppx: not currently indicated DVT ppx: heparin Code status: Full Prognosis: guarded Disposition: inpatient med surg Time Spent With Patient Time: Total time spent is greater than 50% in coordination of care (as documented) at patient's floor/unit and/or counseling patient: Total time spent with greater than 50% in coordination of care (as documented) at patient's floor/unit and/or counseling patient:: 15 - 24 minutes
[2021-05-16] MEDS: SENNOSIDES 1 TABLET PO SCH (20:40)
[2021-05-17] MEDS: ACETAMINOPHEN 325 MG TABLET PO PRN ×3 (03:42→21:24)
[2021-05-17] MEDS: 0.9 % SODIUM CHLORIDE 10 ML SYRINGE IV SCH ×3 (06:31→21:25)
[2021-05-17 06:56] LABS: Basophils # (Auto) 0.03 K/mcL (0.00-0.20); Basophils % (Auto) 0.4 % (0.0-2.0); Eosinophils # (Auto) 0.11 K/mcL (0.00-0.70); Eosinophils % (Auto) 1.4 % (0.0-7.0); Hematocrit 26.3 % (36.0-48.0); Hemoglobin 8.6 g/dL (12.0-15.0); Lymphocytes # (Auto) 1.81 K/mcL (1.50-4.80); Lymphocytes % (Auto) 23.5 % (15.0-49.0); Mean Cell Volume 92.9 fL (80.0-100.0); Mean Corpuscular HGB Conc 32.7 g/dL (31.0-36.0); Mean Platelet Volume 9.3 fL (7.4-10.4); Monocytes # (Auto) 0.48 K/mcL (0.10-0.90); Monocytes % (Auto) 6.2 % (1.0-12.0); Neutrophils % (Auto) 68.5 % (38.0-78.0); Platelet Count 278 K/mcL (140-440); RBC 2.83 M/mcL (4.00-5.20); Red Cell Distribution Width 14.3 % (11.5-14.5); WBC 7.7 K/mcL (4.5-11.0)
[2021-05-17 07:33] LABS: ALT/SGPT < 5 U/L (<40); AST/SGOT 8 U/L (<32); Albumin 2.8 gm/dL (3.2-5.2); Albumin/Globulin Ratio 0.8 (1.0-2.3); Alkaline Phosphatase 91 U/L (39-117); Bilirubin,Total 0.3 mg/dL (0.1-1.0); Blood Urea Nitrogen 48 mg/dL (6-20); Calcium 7.5 mg/dL (8.6-10.4); Carbon Dioxide 20 mmol/L (22-30); Chloride 102 mmol/L (96-108); Globulin 3.3 gm/dL (2.2-3.7); Glomerular Filtration Rate 9; Glucose 84 mg/dL (70-105)
[2021-05-17] MEDS: CYANOCOBALAMIN (VITAMIN B-12) 500 MCG TABLET PO SCH (07:49)
[2021-05-17] MEDS: VITAMIN D3 1,000 UNIT TABLET PO SCH (07:49)
[2021-05-17] MEDS: CLOPIDOGREL 75 MG TABLET PO SCH (07:49)
[2021-05-17] MEDS: CALCITRIOL 0.25 MCG CAPSULE PO SCH (07:49)
[2021-05-17] MEDS: FERROUS SULFATE 325 MG TABLET PO SCH ×2 (07:49→16:49)
[2021-05-17] MEDS: HEPARIN 5,000 UNIT/ML VIAL SQ SCH ×2 (07:50→21:23)
--- NOTE | 2021-05-17 08:15 | Nephrology Progress Note ---
SUBJECTIVE Subjective Patient information: Note initiated : 05/17/21 at 8:13 am Service Date, if different from initiated Date: [] Patient: Nani Wild 40 y/o F admitted on 05/15/21 for lower ext swelling. Chief Complaint: swelling in leg and ESRD for start of HD[] S/E/DR Today will be her second dialysis treatment for 3 hours no second unit of packed red blood cells is to be administered. Etiology of ESRD is chronic reflux Her hypertensive medications have been discontinued to permit dialysis with fluid removal She will need outpatient evaluation and treatment of outflow stenosis based on high venous pressures. Laboratory Tests 05/17/21 05:53 WBC 7.7 Hgb 8.6 L Hct 26.3 L MCV 92.9 Plt Count 278 Laboratory Tests 05/17/21 05/17/21 05:53 05:53 Sodium 137 Potassium 3.0 L Chloride 102 Carbon Dioxide 20 L BUN 48 H Creatinine 5.4 H* GFR Calculation 9 Glucose 84 Calcium 7.5 L Phosphorus 5.0 H Albumin 2.8 L Plan HD tomorrow and discharge for follow up on TTS HD starting 04/2921 as outpatient at [facility] HD unit TTS second shift Constitutional Vitals: Vital Signs Temp Pulse Resp BP Pulse Ox 37.2 C 74 18 121/82 96 05/17/21 07:47 05/17/21 07:47 05/17/21 07:47 05/17/21 07:47 05/17/21 07:47 Period Temp Pulse Resp BP Sys/Kinney Pulse Ox Last 24 Hr 36.1 C-37.2 C 60-92 12-20 83-122/40-82 91-100 Intake and Output 05/16/21 05/17/21 05/17/21 21:59 05:59 13:59 Intake Total 700 300 Output Total 1200 900 Balance -500 -600 Weight 68.492 kg Intake & Output: Intake & Output 05/16/21 05/17/21 05/17/21 21:59 05:59 13:59 Intake Total 700 300 Output Total 1200 900 Balance -500 -600 Weight 68.492 kg Intake: Oral 700 300 Output: Void Amount 1200 900 Other: Meal Breakfast Percent of Meal Consumed 50% Feeding Ability Independent Urine Appearance Clear Cloudy Urine Color Bright Yellow Dark Yellow Urine Odor Strong Stool Size Moderate Stool Consistency Soft # Voids 1 # Bowel Movements 1 General appearance: cooperative, no acute distress and obese Exam: HEENT: Normocephalic atraumatic Pupils equal round react to light Extraocular muscles are intact Neck: No elevated JVD, , or bruits Chest: Clear to percussion auscultation, breath sounds Cor: Normal S1 and S2 without S3 or S4 no pericardial friction rub ABd: Soft and nondistended, active bowel sounds Ext: Without cyanosis clubbing there is 1+ edema Neuro: Alert and oriented x3, nonfocal, cranial nerves II through XII intact, Psych: Pleasant and appropriate Skin: No rashes or petechiae Left arm with AV fistula with good bruit and thrill but numerous accessory veins and high venous pressure on the machine suggest central outflow stenosis which will be addressed as an outpatient A/P Assessment and plan (1) ESRD (end stage renal disease): Status: Chronic Comment: Assessment and plan (1) ESRD (end stage renal disease): (2) Metabolic acidosis, NAG, failure of bicarbonate regeneration: (3) Anemia in chronic kidney disease: (4) Secondary hyperparathyroidism of renal origin: (5) Vesicoureteral reflux with nephropathy, bilateral: (6) TIN (tubulointerstitial nephritis): (7) Edema, peripheral: Narrative A/P Narrative: 1. Reflux nephritis despite attempts at surgical correction 2. Slow progression to ESRD over the years 3. Appropriate for institution of renal replacement therapy at this time 4. Anemia to be treated with 1 to 2 units of packed red blood cells 5. Initiation of STEPHEN therapy 6. Start phosphate binders and vitamin D analogs 7. Routine dialysis as an outpatient. 8. Initially plan on inpatient hemodialysis for 3 sessions increasing time to prevent disequilibrium. 9. Anticipate TTS as an outpatient and plan on her first outpatient treatment on May 21 10. Primary care physician Time Spent With Patient Time: Total time spent is greater than 50% in coordination of care (as documented) at patient's floor/unit and/or counseling patient: Total time spent with greater than 50% in coordination of care (as documented) at patient's floor/unit and/or counseling patient:: Greater than 35 minutes Time Spent With Patient Time: Total time spent is greater than 50% in coordination of care (as documented) at patient's floor/unit and/or counseling patient:
[2021-05-17] MEDS ORDERED: POTASSIUM CHLORIDE 20 MEQ TABLET PO ONE (08:19)
[2021-05-17] MEDS: DOCUSATE SODIUM 100 MG CAPSULE PO SCH ×2 (09:26→21:21)
--- NOTE | 2021-05-17 10:20 | Internal Med Progress Note ---
SUBJECTIVE Subjective Patient information: Note initiated : 05/17/21 at 10:15 am Service Date, if different from initiated Date: [] Patient: Nani Wild 40 y/o F admitted on 05/15/21 for lower ext swelling. Chief Complaint: [ESRD requiring HD] 05/16/21: Hemoglobin 6.9 this morning. Received hemodialysis earlier this morning. Currently c/o mild lightheadedness and general body weakness. Denies chest pain or palpitation. Denies nausea or vomiting. Denies shortness of breath. 05/17/21: s/p hemodialysis yesterday; currently receiving second round today. c/o bilateral leg swelling and pain 04/30. Denies general body weakness. Denies SOB. Denies nausea or vomiting. Constitutional Vitals: Vital Signs Temp Pulse Resp BP Pulse Ox 36.3 C 62 18 116/74 96 05/17/21 09:05 05/17/21 10:08 05/17/21 07:47 05/17/21 10:08 05/17/21 07:47 Period Temp Pulse Resp BP Sys/Kinney Pulse Ox Last 24 Hr 36.3 C-37.2 C 60-92 12-20 82-122/41-82 96-100 Intake and Output 05/16/21 05/17/21 05/17/21 21:59 05:59 13:59 Intake Total 700 300 Output Total 1200 900 Balance -500 -600 Weight 68.492 kg Intake & Output: Intake & Output 05/16/21 05/17/21 05/17/21 21:59 05:59 13:59 Intake Total 700 300 Output Total 1200 900 Balance -500 -600 Weight 68.492 kg Intake: Oral 700 300 Output: Void Amount 1200 900 Other: Meal Breakfast Percent of Meal Consumed 50% Feeding Ability Independent Urine Appearance Clear Cloudy Urine Color Bright Yellow Dark Yellow Urine Odor Strong Stool Size Moderate Stool Consistency Soft # Voids 1 # Bowel Movements 1 General appearance: cooperative and no acute distress Head Head exam: Present atraumatic and normocephalic Eye Eye exam: Present EOMI and PERRL ENT ENT exam: Present mucous membranes moist, normal exam and normal external ear exam Neck Neck exam: Present normal inspection; Absent lymphadenopathy, tenderness and thyromegaly Respiratory Respiratory exam: Absent accessory muscle use, respiratory distress and wheezes Cardiovascular Cardiovascular exam: Present normal rate and rhythm; Absent JVD Additional comments: Left arm AV fistula with palpable thrill GI/Abdominal GI/Abdominal exam: Present normal bowel sounds and soft; Absent organomegaly and tenderness Extremities Exam Extremities exam: Present full ROM, normal capillary refill, normal inspection and pedal edema; Absent tenderness Additional comments: Left arm AV fistula with palpable thrill Neurological Exam Neurological exam: Present alert, CN II-XII intact and oriented X3; Absent motor sensory deficit Psychiatric Psychiatric exam: Present normal affect and normal mood; Absent anxious and depressed Skin Skin exam: Present dry and intact OBJ DATA Labs CBC & Chem 7: 05/17/21 05:53 05/17/21 05:53 Labs: Abnormal Lab Results 05/17/21 05/17/21 05/17/21 05:53 05:53 05:53 WBC RBC 2.83 L Hgb 8.6 L Hct 26.3 L POC Hct RDW Absolute Neutrophils Potassium 3.0 L POC Chloride Carbon Dioxide 20 L POC Total CO2 Anion Gap POC BUN BUN 48 H Creatinine 5.4 H* POC Creatinine Glucose Calcium 7.5 L POC WB Ioniz Calcium Phosphorus 5.0 H TIBC Unsat Iron Binding Transferrin % Sat Ferritin Albumin 2.8 L Albumin/Globulin Ratio 0.8 L 05/16/21 05/16/21 05/16/21 05:31 05:31 05:30 WBC RBC 2.24 L Hgb 6.9 L* Hct 21.9 L POC Hct RDW 14.6 H Absolute Neutrophils Potassium POC Chloride Carbon Dioxide 9 L* POC Total CO2 Anion Gap 22.0 H POC BUN BUN 82 H Creatinine 9.5 H* POC Creatinine Glucose 66 L Calcium 7.6 L POC WB Ioniz Calcium Phosphorus TIBC 112 L Unsat Iron Binding 52 L Transferrin % Sat 54 H Ferritin 278.6 H Albumin 2.8 L Albumin/Globulin Ratio 0.8 L 05/15/21 05/15/21 14:14 14:14 WBC 11.3 H RBC 2.45 L Hgb 7.4 L Hct 23.5 L POC Hct 23 L RDW 14.7 H Absolute Neutrophils 8.67 H Potassium POC Chloride 114 H Carbon Dioxide POC Total CO2 11 L Anion Gap POC BUN 101 H* BUN Creatinine POC Creatinine 12.4 H* Glucose Calcium POC WB Ioniz Calcium 1.00 L Phosphorus TIBC Unsat Iron Binding Transferrin % Sat Ferritin Albumin Albumin/Globulin Ratio Meds: Medications Acetaminophen (Acetaminophen 325 Mg Tablet) 650 mg PO Q6HP PRN; Protocol PRN Reason: Per Pain Protocol/Fever > 101 Last Admin: 05/17/21 03:42 Dose: 650 mg Documented by: Calcitriol (Calcitriol 0.25 Mcg Capsule) 1 mcg PO DAILY [facility] Last Admin: 05/17/21 07:49 Dose: 1 mcg Documented by: Clopidogrel Bisulfate (Clopidogrel 75 Mg Tablet) 75 mg PO QDAY [facility] Last Admin: 05/17/21 07:49 Dose: 75 mg Documented by: Cyanocobalamin (Cyanocobalamin (Vitamin B-12) 500 Mcg Tablet) 1,000 mcg PO DAILY [facility] Last Admin: 05/17/21 07:49 Dose: 1,000 mcg Documented by: Darbepoetin Ochoa (Darbepoetin Ochoa 40 Mcg/Ml Vial) 40 mcg IV WEEKLY [facility] Last Admin: 05/16/21 11:10 Dose: 40 mcg Documented by: Docusate Sodium (Docusate Sodium 100 Mg Capsule) 100 mg PO BID [facility] Last Admin: 05/17/21 09:26 Dose: Not Given Documented by: Ferrous Sulfate (Ferrous Sulfate 325 Mg Tablet) 325 mg PO BIDCC [facility] Last Admin: 05/17/21 07:49 Dose: 325 mg Documented by: Heparin Sodium (Porcine) (Heparin 5,000 Unit/Ml Vial) 5,000 unit SQ Q12 [facility] Last Admin: 05/17/21 07:50 Dose: 5,000 unit Documented by: Ondansetron HCl (Ondansetron 4 Mg/2 Ml Vial) 4 mg IV Q6HP PRN PRN Reason: Nausea And Vomiting Senna (Sennosides 1 Tablet) 2 tab PO HS [facility] Last Admin: 05/16/21 20:40 Dose: Not Given Documented by: Sodium Chloride (0.9 % Sodium Chloride 10 Ml Syringe) 10 ml IV Q8 [facility] Last Admin: 05/17/21 06:31 Dose: 10 ml Documented by: Vitamin D (Vitamin D3 1,000 Unit Tablet) 1,000 unit PO DAILY [facility] Last Admin: 05/17/21 07:49 Dose: 1,000 unit Documented by: Zolpidem Tartrate (Zolpidem 5 Mg Tablet) 5 mg PO HSP PRN PRN Reason: Insomnia A/P Assessment and plan (1) ESRD (end stage renal disease): Status: Acute (2) Benign hypertension with ESRD (end-stage renal disease): Status: Acute (3) Gout: Status: Chronic Comment: On low-dose allopurinol adjusted for decreased GFR Avoid nonsteroidals Qualifiers: Gout site: foot Gout etiology: due to renal impairment Chronicity: chronic Laterality: left Presence of tophus: without tophus Qualified Code(s): M1A.3720 - Chronic gout due to renal impairment, left ankle and foot, without tophus (tophi) (4) Hyperkalemia: Status: Acute Narrative A/P Narrative: Assessment and Plans: 1. Chronic kidney disease stage V now progressing to end stage renal disease: Stays in inpatient med surg Consult truck greaser Dr. Ghosh, hemodialysis 3 times in a roll 05/16 27 and , then 05/21 Continue Lasix 40mg PO BID Renal diet 2. Hypertensive associated with ESRD: [id number] PO BID Resume other home regimen of oral antihypertensives 3. Gout: Hold allopurinol given acute worsening renal function for the time being 4. Anemia associated with ESRD: s/p 1 unit pRBC transfusion given on 05/16/21 cbc w/ auto diff daily to trend H/H and repeat pRBC transfusion as needed 5. Hyperkalemia: Potassium oral replacement CMP daily to trend serum potassium level, repeat replacement as needed Also check serum Mg level and replace if needed GI ppx: not currently indicated DVT ppx: heparin Code status: Full Prognosis: stable Disposition: inpatient med surg Time Spent With Patient Time: Total time spent is greater than 50% in coordination of care (as documented) at patient's floor/unit and/or counseling patient:
[2021-05-17 12:17] LABS: Hepatitis C Virus Antibody NON-REACTIVE (NON-REACTIVE)
[2021-05-17] MEDS: SENNOSIDES 1 TABLET PO SCH (21:21)
[2021-05-18] MEDS: 0.9 % SODIUM CHLORIDE 10 ML SYRINGE IV SCH ×3 (05:05→20:59)
[2021-05-18] MEDS: DOCUSATE SODIUM 100 MG CAPSULE PO SCH ×2 (09:15→20:59)
--- NOTE | 2021-05-18 12:26 | Internal Med Progress Note ---
SUBJECTIVE Subjective Patient information: Note initiated : 05/18/21 at 12:24 pm Service Date, if different from initiated Date: [] Patient: Nani Wild a 40 y/o F admitted on 05/15/21 for lower ext swelling. Chief Complaint: [] Interval history: Ms. Wild is a 40 year old F history of stage V chronic kidney disease with associated hypertension, gout, presenting with 2-day history of bilateral leg swellings. Patient reported that she ran out of her Lasix for a few weeks. She is complaining of 2-day history of bilateral leg swellings a nd associated pain. She is also complaining of general body weakness for the past few days. She is also committing of decreased appetite over the same period of time. She denies any dyspnea or orthopnea. She denies any fever, chills, or diaphoresis. Her usual serum creatinine level was about 6 and today it is 12.4. Venous Doppler ultrasound bilateral lower extremities was performed and no evidence of DVT was found. 05/16/21: Hemoglobin 6.9 this morning. Received hemodialysis earlier this m orning. Currently c/o mild lightheadedness and general body weakness. Denies chest pain or palpitation. Denies nausea or vomiting. Denies shortness of breath. 05/17/21: s/p hemodialysis yesterday; currently receiving second round today. c/o bilateral leg swelling and pain 04/30. Denies general body weakness. Denies SOB. Denies nausea or vomiting. 05/18-patient doing a lot better. No overnight events. No concerns per staff. Ongoing hemodialysis. Likely discharge in 24 hours with outpatient hem odialysis/nephrology follow-up. No additional concerns per nursing staff. Constitutional Vitals: Vital Signs Temp Pulse Resp BP Pulse Ox 98.5 F 80 18 121/77 93 05/18/21 09:00 05/18/21 12:00 05/18/21 08:00 05/18/21 12:00 05/18/21 08:00 Period Temp Pulse Resp BP Sys/Kinney Pulse Ox Last 24 Hr 98.0 F-98.6 F 80-101 18-24 77-131/41-90 93-100 Intake and Output 05/17/21 05/18/21 05/18/21 21:59 05:59 13:59 Intake Total 940 300 240 Output Total 1100 200 Balance -160 100 240 Weight 69.173 kg Alert oriented No labored breathing No anxiety Nondistended abdomen Intake & Output: Intake & Output 05/17/21 05/18/21 05/18/21 21:59 05:59 13:59 Intake Total 940 300 240 Output Total 1100 200 Balance -160 100 240 Weight 69.173 kg Intake: Oral 940 300 240 Output: Void Amount 1100 200 Other: Meal Dinner Breakfast Percent of Meal Consumed 100% 100% Feeding Ability Independent Independent Urine Appearance Clear Clear Urine Color Pale Pale Urine Odor Normal Stool Size Moderate Stool Color Brown Stool Consistency Formed OBJ DATA Labs CBC & Chem 7: 05/17/21 05:53 05/17/21 05:53 Labs: Abnormal Lab Results 05/17/21 05/17/21 05/17/21 05:53 05:53 05:53 WBC RBC 2.83 L Hgb 8.6 L Hct 26.3 L POC Hct RDW Absolute Neutrophils Potassium 3.0 L POC Chloride Carbon Dioxide 20 L POC Total CO2 Anion Gap POC BUN BUN 48 H Creatinine 5.4 H* POC Creatinine Glucose Calcium 7.5 L POC WB Ioniz Calcium Phosphorus 5.0 H TIBC Unsat Iron Binding Transferrin % Sat Ferritin Albumin 2.8 L Albumin/Globulin Ratio 0.8 L 05/16/21 05/16/21 05/16/21 05:31 05:31 05:30 WBC RBC 2.24 L Hgb 6.9 L* Hct 21.9 L POC Hct RDW 14.6 H Absolute Neutrophils Potassium POC Chloride Carbon Dioxide 9 L* POC Total CO2 Anion Gap 22.0 H POC BUN BUN 82 H Creatinine 9.5 H* POC Creatinine Glucose 66 L Calcium 7.6 L POC WB Ioniz Calcium Phosphorus TIBC 112 L Unsat Iron Binding 52 L Transferrin % Sat 54 H Ferritin 278.6 H Albumin 2.8 L Albumin/Globulin Ratio 0.8 L 05/15/21 05/15/21 14:14 14:14 WBC 11.3 H RBC 2.45 L Hgb 7.4 L Hct 23.5 L POC Hct 23 L RDW 14.7 H Absolute Neutrophils 8.67 H Potassium POC Chloride 114 H Carbon Dioxide POC Total CO2 11 L Anion Gap POC BUN 101 H* BUN Creatinine POC Creatinine 12.4 H* Glucose Calcium POC WB Ioniz Calcium 1.00 L Phosphorus TIBC Unsat Iron Binding Transferrin % Sat Ferritin Albumin Albumin/Globulin Ratio Meds: Medications Acetaminophen (Acetaminophen 325 Mg Tablet) 650 mg PO Q6HP PRN; Protocol PRN Reason: Per Pain Protocol/Fever > 101 Last Admin: 05/17/21 21:24 Dose: 650 mg Documented by: Calcitriol (Calcitriol 0.25 Mcg Capsule) 1 mcg PO DAILY [facility] Last Admin: 05/17/21 07:49 Dose: 1 mcg Documented by: Clopidogrel Bisulfate (Clopidogrel 75 Mg Tablet) 75 mg PO QDAY [facility] Last Admin: 05/17/21 07:49 Dose: 75 mg Documented by: Cyanocobalamin (Cyanocobalamin (Vitamin B-12) 500 Mcg Tablet) 1,000 mcg PO DAILY [facility] Last Admin: 05/17/21 07:49 Dose: 1,000 mcg Documented by: Darbepoetin Ochoa (Darbepoetin Ochoa 40 Mcg/Ml Vial) 40 mcg IV WEEKLY [facility] Last Admin: 05/16/21 11:10 Dose: 40 mcg Documented by: Docusate Sodium (Docusate Sodium 100 Mg Capsule) 100 mg PO BID [facility] Last Admin: 05/18/21 09:15 Dose: Not Given Documented by: Ferrous Sulfate (Ferrous Sulfate 325 Mg Tablet) 325 mg PO BIDCC [facility] Last Admin: 05/17/21 16:49 Dose: 325 mg Documented by: Heparin Sodium (Porcine) (Heparin 5,000 Unit/Ml Vial) 5,000 unit SQ Q12 [facility] Last Admin: 05/17/21 21:23 Dose: 5,000 unit Documented by: Ondansetron HCl (Ondansetron 4 Mg/2 Ml Vial) 4 mg IV Q6HP PRN PRN Reason: Nausea And Vomiting Senna (Sennosides 1 Tablet) 2 tab PO HS [facility] Last Admin: 05/17/21 21:21 Dose: Not Given Documented by: Sodium Chloride (0.9 % Sodium Chloride 10 Ml Syringe) 10 ml IV Q8 [facility] Last Admin: 05/18/21 05:05 Dose: 10 ml Documented by: Vitamin D (Vitamin D3 1,000 Unit Tablet) 1,000 unit PO DAILY [facility] Last Admin: 05/17/21 07:49 Dose: 1,000 unit Documented by: Zolpidem Tartrate (Zolpidem 5 Mg Tablet) 5 mg PO HSP PRN PRN Reason: Insomnia A/P Narrative A/P Narrative: * End-stage renal disease and this is managed per nephrology * Hypertension associated ESRD managed per nephrology * Anemia source of ESRD managed per nephrology * History of gout no acute flare * Prophylaxis Heparin Plan * Continue HD per nephrology * Possible discharge in 24 hours * Nutrition support/therapies as indicated Time Spent With Patient Time: Total time spent is greater than 50% in coordination of care (as documented) at patient's floor/unit and/or counseling patient:
[2021-05-18] MEDS: CALCITRIOL 0.25 MCG CAPSULE PO SCH (12:58)
[2021-05-18] MEDS: FERROUS SULFATE 325 MG TABLET PO SCH ×2 (12:59→17:08)
[2021-05-18] MEDS: VITAMIN D3 1,000 UNIT TABLET PO SCH (12:59)
[2021-05-18] MEDS: CLOPIDOGREL 75 MG TABLET PO SCH (13:00)
[2021-05-18] MEDS: CYANOCOBALAMIN (VITAMIN B-12) 500 MCG TABLET PO SCH (13:00)
[2021-05-18] MEDS: ACETAMINOPHEN 325 MG TABLET PO PRN ×2 (13:00→20:58)
[2021-05-18] MEDS: HEPARIN 5,000 UNIT/ML VIAL SQ SCH ×2 (13:00→20:59)
--- NOTE | 2021-05-18 13:41 | Nephrology Progress Note ---
SUBJECTIVE Subjective Patient information: Note initiated : 05/18/21 at 1:39 pm Service Date, if different from initiated Date: [] Patient: Nani Wild a 40 y/o F admitted on 05/15/21 for lower ext swelling. Chief Complaint: [ESRD] Patient doing well on dialysis having undergone her third consecutive treatment. Plan is to discharge tomorrow morning with outpatient dialysis at [facility] outpatient unit on second shift. Orders have been written and taken to the dialysis unit. He is eating a little better, less edema, no uremic symptoms at this point. Vital Signs Temp Pulse Pulse Resp BP BP Pulse Ox 05/18/21 12:23 36.8 C 80 122/79 05/18/21 12:00 80 121/77 05/18/21 11:49 80 123/80 05/18/21 11:30 80 123/78 05/18/21 11:15 80 111/66 05/18/21 11:02 85 113/69 05/18/21 10:45 101/64 05/18/21 10:29 88 96/54 05/18/21 10:10 77/41 05/18/21 10:02 92 H 117/72 05/18/21 09:31 92 H 126/75 05/18/21 09:00 36.9 C 93 H 106/64 05/18/21 08:00 36.8 C 96 H 18 112/76 93 05/18/21 04:05 36.7 C 95 H 22 131/90 100 05/17/21 23:44 36.9 C 101 H 22 125/80 96 05/17/21 19:37 37.0 C 93 H 24 H 123/62 98 05/17/21 16:00 36.9 C 100 H 18 107/72 99 Intake and Output 05/17/21 05/18/21 05/18/21 21:59 05:59 13:59 Intake Total 940 300 240 Output Total 1100 200 0 Balance -160 100 240 Intake: Oral 940 300 240 Output: Void Amount 1100 200 Hemodialysis UF 0 Other: Meal Dinner Breakfast Percent of Meal Consumed 100% 100% Feeding Ability Independent Independent Urine Appearance Clear Clear Urine Color Pale Pale Urine Odor Normal Stool Size Moderate Stool Color Brown Stool Consistency Formed Weight 69.173 kg Current Medications Acetaminophen (Acetaminophen 325 Mg Tablet) 650 mg PO Q6HP PRN; Protocol PRN Reason: Per Pain Protocol/Fever > 101 Last Admin: 05/18/21 13:00 Dose: 650 mg Documented by: Calcitriol (Calcitriol 0.25 Mcg Capsule) 1 mcg PO DAILY [facility] Last Admin: 05/18/21 12:58 Dose: 1 mcg Documented by: Clopidogrel Bisulfate (Clopidogrel 75 Mg Tablet) 75 mg PO QDAY [facility] Last Admin: 05/18/21 13:00 Dose: 75 mg Documented by: Cyanocobalamin (Cyanocobalamin (Vitamin B-12) 500 Mcg Tablet) 1,000 mcg PO DAILY [facility] Last Admin: 05/18/21 13:00 Dose: 1,000 mcg Documented by: Darbepoetin Ochoa (Darbepoetin Ochoa 40 Mcg/Ml Vial) 40 mcg IV WEEKLY [facility] Last Admin: 05/16/21 11:10 Dose: 40 mcg Documented by: Docusate Sodium (Docusate Sodium 100 Mg Capsule) 100 mg PO BID [facility] Last Admin: 05/18/21 09:15 Dose: Not Given Documented by: Ferrous Sulfate (Ferrous Sulfate 325 Mg Tablet) 325 mg PO BIDCC [facility] Last Admin: 05/18/21 12:59 Dose: 325 mg Documented by: Heparin Sodium (Porcine) (Heparin 5,000 Unit/Ml Vial) 5,000 unit SQ Q12 [facility] Last Admin: 05/18/21 13:00 Dose: 5,000 unit Documented by: Ondansetron HCl (Ondansetron 4 Mg/2 Ml Vial) 4 mg IV Q6HP PRN PRN Reason: Nausea And Vomiting Senna (Sennosides 1 Tablet) 2 tab PO HS [facility] Last Admin: 05/17/21 21:21 Dose: Not Given Documented by: Sodium Chloride (0.9 % Sodium Chloride 10 Ml Syringe) 10 ml IV Q8 [facility] Last Admin: 05/18/21 13:04 Dose: 10 ml Documented by: Vitamin D (Vitamin D3 1,000 Unit Tablet) 1,000 unit PO DAILY [facility] Last Admin: 05/18/21 12:59 Dose: 1,000 unit Documented by: Zolpidem Tartrate (Zolpidem 5 Mg Tablet) 5 mg PO HSP PRN PRN Reason: Insomnia Constitutional Vitals: Vital Signs Temp Pulse Resp BP Pulse Ox 36.8 C 80 18 122/79 93 05/18/21 12:23 05/18/21 12:23 05/18/21 08:00 05/18/21 12:23 05/18/21 08:00 Period Temp Pulse Resp BP Sys/Kinney Pulse Ox Last 24 Hr 36.7 C-37.0 C 80-101 18-24 77-131/41-90 93-100 Intake and Output 05/17/21 05/18/21 05/18/21 21:59 05:59 13:59 Intake Total 940 300 240 Output Total 1100 200 0 Balance -160 100 240 Weight 69.173 kg Intake & Output: Intake & Output 05/17/21 05/18/21 05/18/21 21:59 05:59 13:59 Intake Total 940 300 240 Output Total 1100 200 0 Balance -160 100 240 Weight 69.173 kg Intake: Oral 940 300 240 Output: Void Amount 1100 200 Hemodialysis UF 0 Other: Meal Dinner Breakfast Percent of Meal Consumed 100% 100% Feeding Ability Independent Independent Urine Appearance Clear Clear Urine Color Pale Pale Urine Odor Normal Stool Size Moderate Stool Color Brown Stool Consistency Formed Exam: General: Obese, alert and oriented x3, no acute distress H EENT: Normocephalic atraumatic, pupils equal round react light, extraocular muscles are intact, dentition is poor Neck: supple without elevated JVD Chest: Clear to percussion auscultation Cardiac: Normal S1-S2 without S3 2 out of 6 ejection murmur is present no pericardial rub Abdomen: Obese, bowel sounds present, nontender Extremities: Without cyanosis clubbing there is trace edema. Left AV fistula with multiple accessory vessels needs revision Neuro: Alert and oriented x3, cranial nerves intact, no focal abnormalities, no myoclonus Skin: Dry without rashes Psych: Pleasant, A/P Assessment and plan (1) ESRD (end stage renal disease): Status: Chronic Comment: Assessment and plan (1) ESRD (end stage renal disease): (2) Metabolic acidosis, NAG, failure of bicarbonate regeneration: (3) Anemia in chronic kidney disease: (4) Secondary hyperparathyroidism of renal origin: (5) Vesicoureteral reflux with nephropathy, bilateral: (6) TIN (tubulointerstitial nephritis): (7) Edema, peripheral: Narrative A/P Narrative: 1. Reflux nephritis despite attempts at surgical correction 2. Slow progression to ESRD over the years 3. Appropriate for institution of renal replacement therapy at this time 4. Anemia to be treated with 1 to 2 units of packed red blood cells 5. Initiation of STEPHEN therapy 6. Start phosphate binders and vitamin D analogs 7. Routine dialysis as an outpatient. 8. Initially plan on inpatient hemodialysis for 3 sessions increasing time to prevent disequilibrium. 9. Anticipate TTS as an outpatient and plan on her first outpatient treatment on May 21 10. 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 Progressive loss of renal function with associated renal tubular acidosis and electrolyte abnormalities Finally progressed to end-stage renal disease Dialyzed TTS as an outpatient Dry weight around 69 kg Aranesp 60 mcg every Calcium carbonate or acetate for phosphate binder Secondary hyperparathyroidism Evaluate and treat per outpatient hemodialysis protocol Anemia of kidney disease Evaluate and treat per outpatient hemodialysis protocol using IV iron and TSEPHEN therapy Discharge tomorrow morning to walk over to the dialysis unit for her next scheduled treatment which has been arranged. Time Spent With Patient Time: Total time spent is greater than 50% in coordination of care (as documented) at patient's floor/unit and/or counseling patient:
[2021-05-18] MEDS: SENNOSIDES 1 TABLET PO SCH (20:59)
[2021-05-19] MEDS: 0.9 % SODIUM CHLORIDE 10 ML SYRINGE IV SCH (05:37)
[2021-05-19] MEDS: FERROUS SULFATE 325 MG TABLET PO SCH (07:55)
[2021-05-19] MEDS: CLOPIDOGREL 75 MG TABLET PO SCH (07:56)
[2021-05-19] MEDS: CYANOCOBALAMIN (VITAMIN B-12) 500 MCG TABLET PO SCH (07:56)
[2021-05-19] MEDS: VITAMIN D3 1,000 UNIT TABLET PO SCH (07:56)
[2021-05-19] MEDS: HEPARIN 5,000 UNIT/ML VIAL SQ SCH (07:57)
[2021-05-19] MEDS: CALCITRIOL 0.25 MCG CAPSULE PO SCH (07:57)
[2021-05-19] MEDS: DOCUSATE SODIUM 100 MG CAPSULE PO SCH (07:58)
--- NOTE | 2021-05-19 09:58 | Discharge Summary ---
Discharge Provider Provider Patient information: Note initiated : 05/19/21 at 9:56 am Service Date, if different from initiated Date: [] Patient: Nani Wild a 40 y/o F admitted on 05/15/21 for lower ext swelling. Chief Complaint: Discharge diagnosis * End-stage renal disease -ongoing hemodialysis per nephrology. Discharging with advised to continue hemodialysis outpatient * Hypertension associated ESRD continue outpatient management per nephrology * Anemia secondary to ESRD managed per nephrology * History of gout continue home medications Brief hospital course Ms. Wild is a 40 year old F history of stage V chronic kidney disease with associated hypertension, gout, presenting with 2-day history of bilateral leg swellings. Patient reported that she ran out of her Lasix for a few weeks. She is complaining of 2-day history of bilateral leg swellings and associated pain. She is also complaining of general body weakness for the past few days. She is also committing of decreased appetite over the same period of time. She denies any dyspnea or orthopnea. She denies any fever, chills, or diaphoresis. Her usual serum creatinine level was about 6 and today it is 12.4. Venous Doppler ultrasound bilateral lower extremities was performed and no evidence of DVT was found. 05/16/21: Hemoglobin 6.9 this morning. Received hemodialysis earlier this morning. Currently c/o mild lightheadedness and general body weakness. Denies chest pain or palpitation. Denies nausea or vomiting. Denies shortness of breath. 05/17/21: s/p hemodialysis yesterday; currently receiving second round today. c/o bilateral leg swelling and pain 04/30. Denies general body weakness. Denies SOB. Denies nausea or vomiting. 05/18-patient doing a lot better. No overnight events. No concerns per staff. Ongoing hemodialysis. Likely discharge in 24 hours with outpatient hemodialysis/nephrology follow-up. No additional concerns per nursing staff. 05/19-patient doing well. Discharging advised per nephrology and will continue hemodialysis as outpatient. Continue follow-up with nephrology on discharge. No overnight fever chills no concerns per staff. Date of admission: 05/15/21 19:05 Discharge date: 05/19/21 Primary care physician: PCP No Consults: 05/15/21 Consult to Physician [CONS] Stat Comment: Consulting Provider: Stefano Matthews Reason For Exam: Physician to Consult Consult to Physician [CONS] Stat Comment: ESRD needs HD Consulting Provider: Jer Ghosh Reason For Exam: Physician to Consult Discharge Meds Discharge Medications Home Medications cyanocobalamin (vitamin B-12) 1,000 mcg capsule 1,000 mcg PO QDAY #30 cap 09/19/18 [Rx Confirmed 05/15/21 Last Taken Unknown] cholecalciferol (vitamin D3) 25 mcg (1,000 unit) capsule 1,000 unit PO QDAY #30 cap 11/19/18 [Rx Confirmed 05/15/21 Last Taken Unknown] allopurinol 100 mg tablet 200 mg PO QDAY 30 Days #60 tab 01/01/20 [Rx Confirmed 05/15/21 Last Taken Unknown] amlodipine 10 mg tablet 10 mg PO QDAY #30 tab 01/01/20 [Rx Confirmed 05/15/21 Last Taken Unknown] calcitriol 0.5 mcg capsule 1 mcg PO QDAY #30 cap 01/01/20 [Rx Confirmed 05/15/21 Last Taken Unknown] clopidogrel 75 mg tablet 75 mg PO QDAY #30 tab 01/01/20 [Rx Confirmed 05/15/21 Last Taken Unknown] ferrous sulfate 325 mg (65 mg iron) tablet 325 mg PO BID #60 tab 01/01/20 [Rx Confirmed 05/15/21 Last Taken Unknown] furosemide [Lasix] 40 mg PO BID #14 tab 02/27/21 [Rx Confirmed 05/15/21 Last Taken Unknown] COURSE Hospital Course Hospital course: . Discharge diagnosis: . Time Spent with Patient Time attestation: Total time spent providing and/or coordinating discharge services: EXAM Constitutional Vitals: Temp Pulse Resp BP Pulse Ox 98.8 F 106 H 16 117/77 95 05/19/21 07:49 05/19/21 07:49 05/19/21 07:49 05/19/21 07:49 05/19/21 07:49 Discharge Plan Patient/Caregiver Discharge Instructions Activity: increase activity as tolerated Diet: Renal Instructions: End Stage Kidney Disease (ED) Activity Restrictions/Additional Instructions: The ultrasound does not reveal any sign of blood clot or emergent findings today. The edema in your lower extremity is most likely related to your chronic kidney disease. I would recommend that you follow-up with your non linear editor, Dr. Ghosh later this week. Return to ER if you have important symptoms or findings such as significant or major: -Abdominal pain -Chest pain -Shortness of breath -Bleeding -Unexplained fever -Unexplained weakness or numbness of one side of her body, difficulty speaking, or sudden loss of vision (stroke symptoms) -Sudden new "Thunderclap" headache, OR other significant problems or symptoms Prescriptions: Continued cyanocobalamin (vitamin B-12) 1,000 mcg capsule 1,000 mcg PO QDAY Qty: 30 RF: 6 cholecalciferol (vitamin D3) 1,000 unit capsule 1,000 unit PO QDAY Qty: 30 RF: 3 calcitriol 0.5 mcg capsule 1 mcg PO QDAY Qty: 30 RF: 11 allopurinol 100 mg tablet 200 mg PO QDAY 30 Days Qty: 60 RF: 11 amlodipine 10 mg tablet 10 mg PO QDAY Qty: 30 RF: 11 ferrous sulfate 325 mg (65 mg iron) tablet 325 mg PO BID Qty: 60 RF: 11 clopidogrel 75 mg tablet 75 mg PO QDAY Qty: 30 RF: 11 furosemide [Lasix] 40 mg tablet 40 mg PO BID Qty: 14 RF: 0 Follow Up Plan Follow up with: No,PCP [Primary Care Provider] - Patient Disposition: Home, Self-Care Prognosis: Fair Rehab Potential: Good I certify that the patient requires SNF services: No Overall status at discharge: patient is progressing back to baseline Discharge Orders: Discharge Order (Routine); Ordered 05/19/21 Ordered By: Ruddy Alonso
[2021-05-19 17:26] LABS: Hepatitis BE Antibody NONREACTIVE; Hepatitis BE Antigen NONREACTIVE
[2021-05-24 20:46] LABS: PTH Related Protein-SO 25 pg/mL (14-27)
== END 2021-05-19 11:05 | disposition home or self-care (01) | DRG 682 ==
LOC: ED 11:33 → MEDSUR 19:05
PROVIDERS: ADMIT Internal Medicine; ATTEND Internal Medicine

== ENCOUNTER 2025-04-02 17:15 | Inpatient (IN) ==
[2025-04-02] MEDS: ACETAMINOPHEN 325 MG TABLET PO ONE ×2 (17:37→19:18)
[2025-04-02] MEDS: ONDANSETRON 4 MG/2 ML VIAL IV ONE (17:47)
[2025-04-02] MEDS ORDERED: GENTAMICIN PER PHARMACY IV ONE (17:50)
[2025-04-02] MEDS ORDERED: cefTRIAXone 1 GM VIAL IV SCH (18:00)
[2025-04-02] MEDS: cefTRIAXone 2 GM in DEXTROSE 5% IN WATER 50 ML IV ONE (18:09)
[2025-04-02 18:11] LABS: Basophils # (Auto) 0.02 K/mcL (0.00-0.30); Basophils % (Auto) 0.1 % (0.0-2.0); Eosinophils # (Auto) 0.01 K/mcL (0.00-0.70); Eosinophils % (Auto) 0.1 % (0.0-7.0); Hematocrit 31.3 % (34.1-44.9); Hemoglobin 9.9 g/dL (11.2-15.7); Lymphocytes # (Auto) 0.63 K/mcL (1.50-4.80); Lymphocytes % (Auto) 4.1 % (15.5-49.0); Mean Cell Volume 93.7 fL (80.0-100.0); Mean Corpuscular HGB Conc 31.6 g/dL (31.0-36.0); Monocytes # (Auto) 1.53 K/mcL (0.10-0.90); Monocytes % (Auto) 9.9 % (1.0-12.0); Neutrophils % (Auto) 85.5 % (38.0-78.0); Platelet Count 222 K/mcL (140-440); RBC 3.34 M/mcL (3.59-5.38); Red Cell Distribution Width 14.8 % (11.5-14.5); WBC 15.4 K/mcL (4.5-11.0)
[2025-04-02] MEDS: VANCOMYCIN PER PHARMACY IV ONE (18:14)
[2025-04-02] MEDS: VANCOMYCIN 1,000 MG in 0.9 % SODIUM CHLORIDE 250 ML IV ONE (18:45)
[2025-04-02 18:50] LABS: ALT/SGPT 10 U/L (<40); AST/SGOT 17 U/L (<32); Albumin 3.4 gm/dL (3.2-5.2); Albumin/Globulin Ratio 0.9 (1.0-2.3); Alkaline Phosphatase 116 U/L (39-117); Bilirubin,Total 0.5 mg/dL (0.1-1.0); Blood Urea Nitrogen 66 mg/dL (6-20); Calcium 8.3 mg/dL (8.6-10.4); Carbon Dioxide 19 mmol/L (22-30); Chloride 85 mmol/L (96-108); Glomerular Filtration Rate 5; Glucose 109 mg/dL (70-105); Potassium 5.7 mmol/L (3.3-5.1); Sodium 128 mmol/L (133-145)
[2025-04-02] MEDS: INSULIN REGULAR, HUMAN 1 UNIT/0.01 ML UNIT IV ONE (19:18)
[2025-04-02] MEDS: SODIUM BICARBONATE 50 MEQ/50 ML VIAL ONE (19:43)
[2025-04-02] MEDS: DEXTROSE 5% IV SCH (19:49)
[2025-04-02] MEDS: WATER IV SCH (19:49)
[2025-04-02] MEDS: SODIUM BICARBONATE IV SCH (19:49)
[2025-04-02] MEDS: DEXTROSE 50% 50 ML VIAL IV ONE (19:51)
[2025-04-02] MEDS: SODIUM BICARBONATE VIAL 50 MEQ in DEXTROSE 5% IN WATER 1,000 ML IV SCH (19:52)
[2025-04-02 20:00] LABS: Appearance,Urine Cloudy (Clear); Bacteria,Urine Mod /hpf (0); Bilirubin,Urine Negative (Negative); Color,Urine Yellow; Glucose,Urine (UA) 100 mg/dL (Negative); Ketones,Urine Trace mg/dL (Negative); Leukocyte Esterase,Urine Large /uL (Negative); Nitrate,Urine Negative (Negative); Other Crystals,Urine Many /hpf; PH,Urine 8.5 (5.0-9.0); Protein,Urine >=300 mg/dL (Negative); Specific Gravity,Urine 1.015 (1.000-1.035); Urine Blood Moderate ery/mcL (Negative); Urine RBC 10 /hpf (0-3); Urine Squamous Epithelial Cell 15 /hpf (0-4); Urine WBC > 182 /hpf (0-4); Urobilinogen,Urine Normal
[2025-04-02] MEDS ORDERED: ONDANSETRON 4 MG/2 ML VIAL IV PRN (22:42)
[2025-04-03] MEDS: 0.9 % SODIUM CHLORIDE 250 ML IV SCH (02:04)
[2025-04-03] MEDS ORDERED: METOCLOPRAMIDE 10 MG/2 ML VIAL IV PRN ×2 (07:42→09:51)
[2025-04-03] MEDS ORDERED: SENNOSIDES 1 TABLET PO PRN (07:42)
[2025-04-03] MEDS ORDERED: POTASSIUM CHLORIDE 40 MEQ in DEXTROSE 5% IN WATER 500 ML IV PRN (07:42)
[2025-04-03] MEDS ORDERED: POTASSIUM CHLORIDE 20 MEQ TABLET PO PRN ×2 (07:42)
[2025-04-03] MEDS ORDERED: MAGNESIUM SULFATE 2 GM/50 ML BAG IV PRN (07:42)
[2025-04-03] MEDS ORDERED: IPRATROPIUM/ALBUTEROL 3 ML AMPUL.NEB NEB PRN (07:42)
[2025-04-03] MEDS ORDERED: POLYETHYLENE GLYCOL 3350 17 GM PACKET PO PRN (07:42)
[2025-04-03] MEDS ORDERED: VANCOMYCIN PER PHARMACY IV SCH (07:45)
[2025-04-03 08:19] LABS: Hematocrit 30.6 % (34.1-44.9); Hemoglobin 9.4 g/dL (11.2-15.7); Mean Corpuscular HGB Conc 30.7 g/dL (31.0-36.0); Mean Platelet Volume 8.9 fL (8.8-12.5); Platelet Count 190 K/mcL (140-440); RBC 3.22 M/mcL (3.59-5.38); Red Cell Distribution Width 14.9 % (11.5-14.5); WBC 10.7 K/mcL (4.5-11.0)
[2025-04-03 08:59] LABS: ALT/SGPT 9 U/L (<40); AST/SGOT 16 U/L (<32); Albumin/Globulin Ratio 0.8 (1.0-2.3); Alkaline Phosphatase 86 U/L (39-117); Bilirubin,Direct < 0.2 mg/dL (0-0.3); Bilirubin,Total 0.4 mg/dL (0.1-1.0); Blood Urea Nitrogen 73 mg/dL (6-20); Calcium 8.2 mg/dL (8.6-10.4); Carbon Dioxide 19 mmol/L (22-30); Chloride 88 mmol/L (96-108); Globulin 3.6 gm/dL (2.2-3.7); Glomerular Filtration Rate 4; Glucose 97 mg/dL (70-105); Lactate Dehydrogenase 185 U/L (135-225); Potassium 5.6 mmol/L (3.3-5.1); Sodium 129 mmol/L (133-145); Triglycerides 287 mg/dL (<150); Uric Acid 7.6 mg/dL (2.5-8.0)
[2025-04-03 09:08] LABS: Band Neutrophils % 11 % (0-10); Eosinophils % (Manual) 1 % (0-7); Lymphocytes % 3 % (15-49); Monocytes % (Manual) 7 % (1-12); Platelet Estimate NORMAL (Normal); RBC Morphology NORMAL (Normal); Segmented Neutrophils % 78 % (38-78)
[2025-04-03] MEDS: amLODIPine 10 MG TABLET PO SCH (09:58)
[2025-04-03] MEDS ORDERED: HEPARIN 10,000 UNIT/10 ML VIAL IV PRN (10:06)
[2025-04-03] MEDS: CLOPIDOGREL 75 MG TABLET PO SCH (10:11)
[2025-04-03] MEDS: SEVELAMER 800 MG TABLET PO SCH ×2 (10:11→17:36)
[2025-04-03] MEDS: cloNIDine HCL 0.1 MG TABLET PO SCH ×2 (10:11→21:01)
[2025-04-03] MEDS: DOCUSATE SODIUM 100 MG CAPSULE PO SCH (10:11)
[2025-04-03] MEDS: 0.9 % SODIUM CHLORIDE 1,000 ML IV PRN (10:30)
[2025-04-03 13:09] LABS: Vancomycin,Random 25.5 ug/mL
[2025-04-03] MEDS: NOREPINEPHRINE 250 ML IV PRN (14:05)
[2025-04-03] MEDS ORDERED: amLODIPine 10 MG TABLET PO SCH (16:17)
[2025-04-03] MEDS: CALCIUM CARBONATE 500 MG TAB.CHEW CHEWED SCH (16:45)
[2025-04-03] MEDS: VANCOMYCIN 750 MG in 0.9 % SODIUM CHLORIDE 250 ML IV SCH (16:45)
[2025-04-03] MEDS: ACETAMINOPHEN 325 MG TABLET PO PRN (16:46)
[2025-04-03] MEDS: ONDANSETRON 4 MG/2 ML VIAL IV PRN (17:36)
[2025-04-03] MEDS: CEFEPIME 2 GM VIAL IV SCH (17:41)
[2025-04-03] MEDS: CALCITRIOL 0.5 MCG CAPSULE PO SCH (18:19)
[2025-04-03 19:04] LABS: Vancomycin,Random 8.4 ug/mL
[2025-04-03] MEDS: levETIRAcetam 500 MG TABLET PO SCH (21:00)
[2025-04-03] MEDS: HEPARIN 5,000 UNIT/ML VIAL SQ SCH (21:26)
[2025-04-04 06:27] LABS: Hematocrit 27.9 % (34.1-44.9); Hemoglobin 8.6 g/dL (11.2-15.7); Mean Cell Volume 98.2 fL (80.0-100.0); Mean Corpuscular HGB Conc 30.8 g/dL (31.0-36.0); Mean Platelet Volume 9.2 fL (8.8-12.5); Platelet Count 198 K/mcL (140-440); RBC 2.84 M/mcL (3.59-5.38); Red Cell Distribution Width 14.7 % (11.5-14.5); WBC 8.4 K/mcL (4.5-11.0)
[2025-04-04 06:49] LABS: ALT/SGPT 9 U/L (<40); AST/SGOT 17 U/L (<32); Albumin 2.8 gm/dL (3.2-5.2); Albumin/Globulin Ratio 0.8 (1.0-2.3); Alkaline Phosphatase 78 U/L (39-117); Bilirubin,Direct < 0.2 mg/dL (0-0.3); Bilirubin,Total 0.3 mg/dL (0.1-1.0); Blood Urea Nitrogen 25 mg/dL (6-20); Calcium 8.4 mg/dL (8.6-10.4); Carbon Dioxide 29 mmol/L (22-30); Chloride 89 mmol/L (96-108); Globulin 3.6 gm/dL (2.2-3.7); Glomerular Filtration Rate 11; Glucose 99 mg/dL (70-105); Lactate Dehydrogenase 164 U/L (135-225); Phosphorous 5.5 mg/dL (2.5-4.5); Potassium 4.6 mmol/L (3.3-5.1); Sodium 132 mmol/L (133-145); Triglycerides 355 mg/dL (<150); Uric Acid 3.7 mg/dL (2.5-8.0)
[2025-04-04 07:45] LABS: Band Neutrophils % 7 % (0-10); Lymphocytes % 9 % (15-49); Monocytes % (Manual) 8 % (1-12); Platelet Estimate NORMAL (Normal); RBC Morphology NORMAL (Normal); Reactive Lymphocytes 1 % (0-2); Segmented Neutrophils % 78 % (38-78)
[2025-04-04] MEDS ORDERED: CALCITRIOL 0.25 MCG CAPSULE PO SCH (09:00)
[2025-04-04] MEDS: CEFEPIME 1 GM VIAL IV SCH (13:55)
[2025-04-05] MEDS ORDERED: LABETALOL HCL 20 MG/4 ML VIAL IV PRN (07:45)
[2025-04-05] MEDS ORDERED: 0.9 % SODIUM CHLORIDE 1,000 ML IV PRN (16:39)
[2025-04-05] MEDS ORDERED: HEPARIN 10,000 UNIT/10 ML VIAL IV PRN (16:39)
[2025-04-06 06:03] LABS: Basophils # (Auto) 0.03 K/mcL (0.00-0.30); Basophils % (Auto) 0.4 % (0.0-2.0); Eosinophils # (Auto) 0.47 K/mcL (0.00-0.70); Eosinophils % (Auto) 6.2 % (0.0-7.0); Hematocrit 26.9 % (34.1-44.9); Hemoglobin 8.1 g/dL (11.2-15.7); Lymphocytes # (Auto) 1.38 K/mcL (1.50-4.80); Lymphocytes % (Auto) 18.2 % (15.5-49.0); Mean Cell Volume 99.6 fL (80.0-100.0); Mean Corpuscular HGB Conc 30.1 g/dL (31.0-36.0); Mean Platelet Volume 9.3 fL (8.8-12.5); Monocytes # (Auto) 0.88 K/mcL (0.10-0.90); Monocytes % (Auto) 11.6 % (1.0-12.0); Neutrophils % (Auto) 62.7 % (38.0-78.0); Platelet Count 225 K/mcL (140-440); Red Cell Distribution Width 14.4 % (11.5-14.5); WBC 7.6 K/mcL (4.5-11.0)
[2025-04-06 06:18] LABS: Phosphorous 4.7 mg/dL (2.5-4.5)
[2025-04-06 06:44] LABS: ALT/SGPT 10 U/L (<40); AST/SGOT 19 U/L (<32); Albumin 2.7 gm/dL (3.2-5.2); Albumin/Globulin Ratio 0.8 (1.0-2.3); Alkaline Phosphatase 73 U/L (39-117); Bilirubin,Total 0.3 mg/dL (0.1-1.0); Blood Urea Nitrogen 50 mg/dL (6-20); Calcium 8.6 mg/dL (8.6-10.4); Carbon Dioxide 28 mmol/L (22-30); Chloride 84 mmol/L (96-108); Globulin 3.5 gm/dL (2.2-3.7); Glomerular Filtration Rate 6; Glucose 87 mg/dL (70-105); Potassium 5.1 mmol/L (3.3-5.1); Sodium 125 mmol/L (133-145)
[2025-04-06 07:20] LABS: Iron 88 ug/dL (37-145); TIBC Calculation 105 ug/dl (228-428); Transferrin % Saturation 84 % (15-50)
[2025-04-06] MEDS ORDERED: LIDOCAINE 1% 10 ML VIAL SQ ONE (11:33)
[2025-04-06] MEDS ORDERED: ceFAZolin 1 GM VIAL IV SCH (12:00)
[2025-04-06] MEDS: ALTEPLASE 2 MG VIAL IV ONE (13:15)
[2025-04-06] MEDS: ALTEPLASE 100 MG/100 ML VIAL IV ONE (13:18)
[2025-04-06] MEDS: DARBEPOETIN ALFA 100 MCG/ML VIAL IV ONE (14:48)
[2025-04-06] MEDS: IRON SUCROSE COMPLEX 100 MG/5 ML VIAL IV ONE (14:52)
[2025-04-06] MEDS: MIDODRINE 5 MG TABLET PO SCH (17:33)
[2025-04-06] MEDS: ceFAZolin 1 GM VIAL IV SCH (18:04)
[2025-04-07 06:37] LABS: Basophils # (Auto) 0.05 K/mcL (0.00-0.30); Basophils % (Auto) 0.7 % (0.0-2.0); Eosinophils # (Auto) 0.33 K/mcL (0.00-0.70); Eosinophils % (Auto) 4.5 % (0.0-7.0); Hematocrit 30.5 % (34.1-44.9); Hemoglobin 9.2 g/dL (11.2-15.7); Lymphocytes # (Auto) 1.32 K/mcL (1.50-4.80); Mean Cell Volume 100.3 fL (80.0-100.0); Mean Corpuscular HGB Conc 30.2 g/dL (31.0-36.0); Mean Platelet Volume 9.4 fL (8.8-12.5); Monocytes # (Auto) 0.76 K/mcL (0.10-0.90); Monocytes % (Auto) 10.4 % (1.0-12.0); Neutrophils % (Auto) 64.2 % (38.0-78.0); Platelet Count 265 K/mcL (140-440); RBC 3.04 M/mcL (3.59-5.38); Red Cell Distribution Width 14.3 % (11.5-14.5); WBC 7.3 K/mcL (4.5-11.0)
[2025-04-07 06:41] LABS: Phosphorous 3.9 mg/dL (2.5-4.5)
[2025-04-07 06:42] LABS: ALT/SGPT 7 U/L (<40); AST/SGOT 24 U/L (<32); Albumin 2.8 gm/dL (3.2-5.2); Albumin/Globulin Ratio 0.8 (1.0-2.3); Alkaline Phosphatase 101 U/L (39-117); Bilirubin,Total 0.2 mg/dL (0.1-1.0); Blood Urea Nitrogen 25 mg/dL (6-20); Calcium 8.3 mg/dL (8.6-10.4); Carbon Dioxide 30 mmol/L (22-30); Chloride 89 mmol/L (96-108); Globulin 3.5 gm/dL (2.2-3.7); Glomerular Filtration Rate 11; Glucose 85 mg/dL (70-105); Potassium 4.8 mmol/L (3.3-5.1); Sodium 130 mmol/L (133-145)
[2025-04-07] MEDS: CALCITRIOL 0.25 MCG CAPSULE PO SCH (09:54)
[2025-04-08] MEDS: CALCITRIOL 0.25 MCG CAPSULE PO SCH (08:45)
[2025-04-08] MEDS: MIDODRINE 5 MG TABLET PO SCH (08:46)
[2025-04-08 11:47] LABS: Basophils # (Auto) 0.06 K/mcL (0.00-0.30); Basophils % (Auto) 0.5 % (0.0-2.0); Eosinophils # (Auto) 0.57 K/mcL (0.00-0.70); Eosinophils % (Auto) 5.2 % (0.0-7.0); Hematocrit 28.8 % (34.1-44.9); Hemoglobin 8.6 g/dL (11.2-15.7); Lymphocytes % (Auto) 19.1 % (15.5-49.0); Mean Corpuscular HGB Conc 29.9 g/dL (31.0-36.0); Mean Platelet Volume 9.1 fL (8.8-12.5); Monocytes # (Auto) 1.01 K/mcL (0.10-0.90); Monocytes % (Auto) 9.2 % (1.0-12.0); Neutrophils % (Auto) 62.4 % (38.0-78.0); Platelet Count 371 K/mcL (140-440); RBC 2.88 M/mcL (3.59-5.38); Red Cell Distribution Width 14.4 % (11.5-14.5)
[2025-04-08 11:59] VITALS: O2SAT 100
[2025-04-08 12:01] LABS: Phosphorous 3.6 mg/dL (2.5-4.5)
[2025-04-08 12:40] LABS: ALT/SGPT < 5 U/L (<40); AST/SGOT 23 U/L (<32); Albumin 2.9 gm/dL (3.2-5.2); Albumin/Globulin Ratio 0.8 (1.0-2.3); Alkaline Phosphatase 104 U/L (39-117); Bilirubin,Total 0.3 mg/dL (0.1-1.0); Blood Urea Nitrogen 39 mg/dL (6-20); Calcium 8.5 mg/dL (8.6-10.4); Carbon Dioxide 28 mmol/L (22-30); Chloride 83 mmol/L (96-108); Globulin 3.5 gm/dL (2.2-3.7); Glomerular Filtration Rate 8; Glucose 101 mg/dL (70-105); Potassium 4.9 mmol/L (3.3-5.1); Sodium 123 mmol/L (133-145)
[2025-04-08] MEDS: LORazepam 0.5 MG TABLET PO PRN (14:57)
[2025-04-08 15:42] VITALS: TEMP 97.4
== END 2025-04-08 15:33 | disposition short-term general hospital (02) | DRG 314 ==
LOC: ED 17:15 → ICU 23:14
PROVIDERS: ADMIT Internal Medicine; ATTEND Internal Medicine